=== PATIENT | female | born 1930 | race African-American/Black ===

== ENCOUNTER → 2017-07-11 | Outpatient (CLI) | payer MEDICARE, BC ==
[2017-07-11 12:47] LABS: Basophils # (A) 0.1 k/uL (0-0.2); Basophils % (A) 1 %; CH 33.5; Eosinophils # (A) 0.2 k/uL (0-0.7); Eosinophils % (A) 4 %; HCT 39.4 % (34.0-46.0); HDW 2.42; HGB 12.8 gm/dL (11.4-16.0); Luc # (Auto) 0.29; Luc % (Auto) 5; Lymphocytes # (A) 2.5 k/uL (1.0-4.8); Lymphocytes % (A) 39 %; MCH 34.2 pg (25.0-35.0); MCHC 32.6 g/dL (31.0-37.0); MCV 104.9 fL (80.0-100.0); Macrocytosis Slight; Mean Platelet Volume 7.3; Monocytes # (A) 0.4 k/uL (0-1.0); Monocytes % (A) 6 %; Neutrophils # (A) 2.9 k/uL (1.3-7.7); Neutrophils % (A) 46 %; RBC 3.75 m/uL (3.80-5.40); RDW 12.3 % (11.5-15.5); WBC 6.4 k/uL (3.8-10.6); WBC (Perox) 6.42
[2017-07-11 12:52] LABS: Appearance,Urine Clear (Clear); Bacteria,Urine Rare /hpf; Bilirubin,Urine Negative (Negative); Glucose,Urine (UA) Negative (Negative); Ketones,Urine Negative (Negative); Leukocyte Esterase,Urine Moderate (Negative); Mucus,Urine Rare /hpf; Nitrite,Urine Negative (Negative); PH, Urine 5.5 (5.0-8.0); Particle Count 4371; Protein,Urine Negative (Negative); RBC,Urine 1 /hpf (0-5); Specific Gravity,Urine 1.013 (1.001-1.035); Squamous Epithelial Cell,Urine 5 /hpf (0-4); UA Billing (MACRO vs. MICRO) MICRO; WBC,Urine 1 /hpf (0-5)
[2017-07-11 12:57] LABS: Calcium 10.1 mg/dL (8.4-10.2); Potassium 4.6 mmol/L (3.5-5.1); Total Bilirubin 0.8 mg/dL (0.2-1.3); Total Protein 7.3 g/dL (6.3-8.2); Uric Acid 6.5 mg/dL (3.7-7.4)
== END | disposition home or self-care (01) ==
LOC: LABWHC1 11:20
PROVIDERS: ATTEND Internal Medicine Critical Care Medicine
DX: N18.9 Chronic kidney disease, unspecified (principal)
CPT/HCPCS: 36415; 80053; 80061; 81001; 82306; 84550; 85025

== ENCOUNTER → 2018-04-06 | Outpatient (CLI) | payer MEDICARE, BC ==
[2018-04-06 12:45] LABS: Basophils # (A) 0.1 k/uL (0-0.2); Basophils % (A) 1 %; Eosinophils # (A) 0.2 k/uL (0-0.7); Eosinophils % (A) 2 %; HCT 42.7 % (34.0-46.0); HGB 14.2 gm/dL (11.4-16.0); Lymphocytes # (A) 2.2 k/uL (1.0-4.8); Lymphocytes % (A) 36 %; MCH 34.4 pg (25.0-35.0); MCHC 33.3 g/dL (31.0-37.0); MCV 103.3 fL (80.0-100.0); Macrocytosis Slight; Mean Platelet Volume 7.3; Monocytes # (A) 0.3 k/uL (0-1.0); Monocytes % (A) 5 %; Neutrophils # (A) 3.2 k/uL (1.3-7.7); Neutrophils % (A) 53 %; Platelet Count 169 k/uL (150-450); RBC 4.14 m/uL (3.80-5.40); RDW 12.4 % (11.5-15.5); WBC 6.1 k/uL (3.8-10.6)
[2018-04-06 12:50] LABS: Albumin 4.3 g/dL (3.5-5.0); Calcium 10.5 mg/dL (8.4-10.2); Potassium 4.5 mmol/L (3.5-5.1); Total Protein 7.7 g/dL (6.3-8.2)
[2018-04-06 13:06] LABS: T4, Free (Free Thyroxine) 1.47 ng/dL (0.78-2.19)
== END | disposition home or self-care (01) ==
LOC: LABWHC1 11:51
PROVIDERS: ATTEND Internal Medicine Critical Care Medicine
DX: E78.5 Hyperlipidemia, unspecified (principal)
CPT/HCPCS: 36415; 80053; 80061; 84439; 84443; 85025

== ENCOUNTER → 2018-04-09 | Outpatient (CLI) | payer MEDICARE, BC | END | disposition home or self-care (01) | LOC: LABWHC1 09:58 | PROVIDERS: ATTEND Internal Medicine Critical Care Medicine | DX: E83.52 Hypercalcemia (principal) | CPT/HCPCS: 36415; 83970 ==

== ENCOUNTER → 2018-04-20 | Outpatient (CLI) | payer MEDICARE, BC ==
--- NOTE | 2018-04-21 08:24 | NM ---
EXAMINATION TYPE: NM parathyroid w/spect DATE OF EXAM: 04/20/2018 COMPARISON: NONE HISTORY: R 94.6, abnormal thyroid function test TECHNIQUE: Following administration of 24.1 mCi Tc99m Sestamibi. Anterior projection images of the neck and ches t were obtained 10 minutes and 3 hours post injection. SPECT images of the neck and chest were obtai tanya and reconstructed in three axes. FINDINGS: Thyroid tracer washout: Delayed images demonstrate near-complete tracer washout from the thyroid. Parathyroid uptake: None. The two-hour delayed images do not demonstrate any focal abnormal persisten t uptake in the region of the parathyroid glands to suggest parathyroid adenoma. IMPRESSION: Normal parathyroid imaging study. No evidence for mediastinal uptake to suggest mediastinal parathyro id adenoma
== END | disposition home or self-care (01) ==
LOC: RADNMMAIN 11:35
PROVIDERS: ATTEND Internal Medicine Critical Care Medicine
DX: R94.6 Abnormal results of thyroid function studies (principal)
CPT/HCPCS: 78071; A9500

== ENCOUNTER 2018-11-09 12:21 | Inpatient (IN) | payer MEDICARE, BC ==
[2018-11-09] MEDS ORDERED: IPRATROPIUM-ALBUTEROL 3 ML NEB INHALATION STA (13:43)
--- NOTE | 2018-11-09 13:47 | ED ---
General Adult HPI - General Chief complaint: Shortness of Breath Stated complaint: Sob Time Seen by Provider: 11/09/18 12:52 Source: patient, family, RN notes reviewed Mode of arrival: wheelchair Limitations: no limitations - History of Present Illness Initial comments: Patient is a pleasant 88-year-old female presenting to the emergency department with dyspnea. Dyspnea has been ongoing for several months however is much worse today. Patient has had cough with some yellow sputum. No fevers. Patient does have some mild pressure in her chest. Symptoms worsened significantly with exertion. No history of chronic lung problems or COPD. Patient does have a history of previous pulmonary embolism however is not on any anticoagulation at this time. Patient did see her primary care physician, Dr. Somers earlier today who did advise she comes to the hospital. Patient does admit to having some mild leg swelling however states this is chronic and unchanged - Related Data Home Medications Medication Instructions Recorded Confirmed Acetaminophen Tab [Tylenol Tab] 1,000 mg PO Q4H PRN 11/09/18 11/09/18 Simvastatin [Zocor] 20 mg PO HS 11/09/18 11/09/18 amLODIPine [Norvasc] 10 mg PO DAILY 11/09/18 11/09/18 Previous Rx's Medication Instructions Recorded Aspirin EC [Ecotrin Low Dose] 81 mg PO DAILY tablet. 01/07/16 Nitroglycerin Sl Tabs [Nitrostat] 0.4 mg SUBLINGUAL Q5M PRN #25 tab 01/07/16 Allergies Allergy/AdvReac Type Severity Reaction Status Date / Time No Known Allergies Allergy Verified 11/09/18 13:11 Review of Systems ROS Statement: Those systems with pertinent positive or pertinent negative responses have been documented in the HPI. ROS Other: All systems not noted in ROS Statement are negative. Constitutional: Denies: fever Eyes: Denies: eye pain ENT: Denies: ear pain Respiratory: Reports: as per HPI, cough, dyspnea Cardiovascular: Reports: chest pain Endocrine: Reports: fatigue Gastrointestinal: Denies: abdominal pain Genitourinary: Denies: dysuria Musculoskeletal: Denies: arthralgia Skin: Denies: rash Neurological: Denies: headache Past Medical History Past Medical History: Hyperlipidemia, Hypertension, Renal Disease Additional Past Medical History / Comment(s): Remote history of questionable pulmonary embolus, and back then the patient was treated with 6 months of an evaluation with warfarin. Note that the patient has chronic renal failure, she is of a Religious kash History of Any Multi-Drug Resistant Organisms: None Reported Past Surgical History: Breast Surgery Additional Past Surgical History / Comment(s): L breast biopsy Past Anesthesia/Blood Transfusion Reactions: No Reported Reaction Past Psychological History: No Psychological Hx Reported Smoking Status: Never smoker Past Alcohol Use History: None Reported Past Drug Use History: None Reported - Past Family History Father History Unknown: Yes Family Medical History: Hyperlipidemia, Hypertension Mother Family Medical History: Hypertension General Exam Limitations: no limitations General appearance: alert, in no apparent distress Head exam: Present: atraumatic Eye exam: Present: normal appearance, PERRL ENT exam: Present: normal oropharynx Respiratory exam: Present: decreased breath sounds Cardiovascular Exam: Present: regular rate, normal rhythm Expanded Peripheral pulses: 2+: Radial (R), Radial (L), Dorsalis Pedis (R), Dorsalis Pedis (L) GI/Abdominal exam: Present: soft. Absent: tenderness Extremities exam: Present: pedal edema (+ 1 bilateral). Absent: calf tenderness Back exam: Present: normal inspection Neurological exam: Present: alert Psychiatric exam: Present: normal affect, normal mood Skin exam: Present: normal color Course Vital Signs 11/09/18 11/09/18 11/09/18 12:34 13:54 13:59 Temperature 98.4 F Pulse Rate 102 H 93 91 Respiratory 18 Rate Blood Pressure 127/76 O2 Sat by Pulse 91 L Oximetry EKG Findings - EKG Comments: EKG Findings:: Normal sinus rhythm 95. VT 180. QRS 80. QT 378. QTC 475. Left axis. Normal QRS. No acute ST change. Medical Decision Making - Medical Decision Making Patient reevaluated and resting comfortably in bed. Patient and family updated on results and plan. Dr. Somers had requested VQ scan and echo and Doppler. These will be ordered. He will be placed on consult. Case also discussed with Dr. Hollingsworth, who has previously admitted this patient and will admit. Patient will be covered on heparin at this time secondary to incomplete evaluation for pulmonary embolism. VQ scan is not available at this time. Cardiology will also be placed on consult. - Lab Data Result diagrams: 11/09/18 13:15 11/09/18 13:15 Lab Results 11/09/18 11/09/18 11/09/18 Range/Units 13:15 13:15 13:15 WBC 7.3 (3.8-10.6) k/uL RBC 3.72 L (3.80-5.40) m/uL Hgb 12.5 (11.4-16.0) gm/dL Hct 37.4 (34.0-46.0) % MCV 100.4 H (80.0-100.0) fL MCH 33.6 (25.0-35.0) pg MCHC 33.5 (31.0-37.0) g/dL RDW 12.3 (11.5-15.5) % Plt Count 125 L (150-450) k/uL Neutrophils % 68 % Lymphocytes % 23 % Monocytes % 5 % Eosinophils % 2 % Basophils % 0 % Neutrophils # 5.0 (1.3-7.7) k/uL Lymphocytes # 1.6 (1.0-4.8) k/uL Monocytes # 0.4 (0-1.0) k/uL Eosinophils # 0.1 (0-0.7) k/uL Basophils # 0.0 (0-0.2) k/uL PT (9.0-12.0) sec INR (<1.2) APTT (22.0-30.0) sec Sodium 141 (137-145) mmol/L Potassium 4.4 (3.5-5.1) mmol/L Chloride 113 H (98-107) mmol/L Carbon Dioxide 18 L (22-30) mmol/L Anion Gap 10 mmol/L BUN 19 H (7-17) mg/dL Creatinine 1.26 H (0.52-1.04) mg/dL Est GFR (CKD-EPI)AfAm 45 (>60 ml/min/1.73 sqM) Est GFR (CKD-EPI)NonAf 39 (>60 ml/min/1.73 sqM) Glucose 118 H (74-99) mg/dL Calcium 10.0 (8.4-10.2) mg/dL Total Bilirubin 0.9 (0.2-1.3) mg/dL AST 19 (14-36) U/L ALT 19 (9-52) U/L Alkaline Phosphatase 91 (38-126) U/L Total Creatine Kinase 85 (30-135) U/L CK-MB (CK-2) 0.7 (0.0-2.4) ng/mL CK-MB (CK-2) Rel Index 0.8 Troponin I 0.070 H* (0.000-0.034) ng/mL NT-Pro-B Natriuret Pep pg/mL Total Protein 7.7 (6.3-8.2) g/dL Albumin 3.9 (3.5-5.0) g/dL 11/09/18 11/09/18 Range/Units 13:15 13:15 WBC (3.8-10.6) k/uL RBC (3.80-5.40) m/uL Hgb (11.4-16.0) gm/dL Hct (34.0-46.0) % MCV (80.0-100.0) fL MCH (25.0-35.0) pg MCHC (31.0-37.0) g/dL RDW (11.5-15.5) % Plt Count (150-450) k/uL Neutrophils % % Lymphocytes % % Monocytes % % Eosinophils % % Basophils % % Neutrophils # (1.3-7.7) k/uL Lymphocytes # (1.0-4.8) k/uL Monocytes # (0-1.0) k/uL Eosinophils # (0-0.7) k/uL Basophils # (0-0.2) k/uL PT 10.2 (9.0-12.0) sec INR 0.9 (<1.2) APTT 24.1 (22.0-30.0) sec Sodium (137-145) mmol/L Potassium (3.5-5.1) mmol/L Chloride (98-107) mmol/L Carbon Dioxide (22-30) mmol/L Anion Gap mmol/L BUN (7-17) mg/dL Creatinine (0.52-1.04) mg/dL Est GFR (CKD-EPI)AfAm (>60 ml/min/1.73 sqM) Est GFR (CKD-EPI)NonAf (>60 ml/min/1.73 sqM) Glucose (74-99) mg/dL Calcium (8.4-10.2) mg/dL Total Bilirubin (0.2-1.3) mg/dL AST (14-36) U/L ALT (9-52) U/L Alkaline Phosphatase (38-126) U/L Total Creatine Kinase (30-135) U/L CK-MB (CK-2) (0.0-2.4) ng/mL CK-MB (CK-2) Rel Index Troponin I (0.000-0.034) ng/mL NT-Pro-B Natriuret Pep 810 pg/mL Total Protein (6.3-8.2) g/dL Albumin (3.5-5.0) g/dL - Radiology Data Radiology results: image reviewed (Chest x-ray shows no acute pulmonary disease. Right. Tracheal soft tissue density.) Disposition Clinical Impression: Dyspnea Disposition: ADMITTED IP TO THIS HOSP Is patient prescribed a controlled substance at d/c from ED?: No Referrals: Nakia Somers MD [Primary Care Provider] - 1-2 days Decision Time: 15:19
[2018-11-09 14:24] LABS: Basophils % (A) 0 %; Eosinophils # (A) 0.1 k/uL (0-0.7); Eosinophils % (A) 2 %; HCT 37.4 % (34.0-46.0); HGB 12.5 gm/dL (11.4-16.0); Lymphocytes # (A) 1.6 k/uL (1.0-4.8); Lymphocytes % (A) 23 %; MCH 33.6 pg (25.0-35.0); MCHC 33.5 g/dL (31.0-37.0); MCV 100.4 fL (80.0-100.0); Mean Platelet Volume 7.2; Monocytes # (A) 0.4 k/uL (0-1.0); Monocytes % (A) 5 %; Neutrophils % (A) 68 %; Platelet Count 125 k/uL (150-450); RBC 3.72 m/uL (3.80-5.40); RDW 12.3 % (11.5-15.5); WBC 7.3 k/uL (3.8-10.6)
[2018-11-09 14:28] LABS: Albumin 3.9 g/dL (3.5-5.0); Potassium 4.4 mmol/L (3.5-5.1); Total Bilirubin 0.9 mg/dL (0.2-1.3); Total Protein 7.7 g/dL (6.3-8.2)
[2018-11-09 14:43] LABS: INR 0.9 (<1.2); Partial Thromboplastin Time 24.1 sec (22.0-30.0); Prothrombin Time 10.2 sec (9.0-12.0)
[2018-11-09 15:00] LABS: Creatine Kinase MB 0.7 ng/mL (0.0-2.4)
--- NOTE | 2018-11-09 15:04 | XR ---
EXAMINATION TYPE: XR chest 2V DATE OF EXAM: 11/09/2018 COMPARISON: 01/06/2016 HISTORY: Shortness of breath TECHNIQUE: Frontal and lateral views of the chest are obtained. FINDINGS: Scattered senescent parenchymal changes noted. Hyperinflation compatible with COPD. No evidence for infiltrate. No evidence for atelectasis. Heart size is stable. Right paratracheal soft tissue mass is unchanged. No evidence for hilar prominence. Degenerative changes dorsal spine. IMPRESSION: 1. No evidence for acute pulmonary disease. Right paratracheal soft tissue density. Consider CT corre lation.
[2018-11-09 15:10] LABS: Troponin I 0.07 ng/mL (0.000-0.034)
[2018-11-09] MEDS ORDERED: NITROGLYCERIN SL TABS 0.4 MG TAB SUBLINGUAL PRN (15:20)
[2018-11-09] MEDS ORDERED: HEPARIN SODIUM,PORCINE 5,000 UNIT/ML 1 ML VIAL IV PRN (15:20)
[2018-11-09] MEDS ORDERED: HEPARIN SODIUM,PORCINE 10,000 UNIT/ML 1 ML VIAL IV ONE (15:20)
[2018-11-09] MEDS ORDERED: ASPIRIN 81 MG PO STA (15:20)
[2018-11-09] MEDS ORDERED: IPRATROPIUM-ALBUTEROL 3 ML NEB INHALATION PRN (15:20)
--- NOTE | 2018-11-09 16:37 | US ---
EXAMINATION TYPE: US venous doppler duplex LE BI DATE OF EXAM: 11/09/2018 4:23 PM COMPARISON: NONE CLINICAL HISTORY: 85-year-old female Pain. Ankle swelling SIDE PERFORMED: Bilateral TECHNIQUE: The lower extremity deep venous system is examined utilizing real time linear array sonog la with graded compression, doppler sonography and color-flow sonography. FINDINGS: VESSELS IMAGED: External Iliac Vein (EIV) Common Femoral Vein Deep Femoral Vein Greater Saphenous Vein * Femoral Vein Popliteal Vein Small Saphenous Vein * Proximal Calf Veins (* superficial vessels) Right Leg: Internal echoes within popiteal vein and proximal calf veins that are not compressible Left Leg: Appears negative for DVT IMPRESSION: 1. Exam positive for occlusive DVT within the right lower extremity at the level of the popliteal and upper calf vein. 2. No evidence for DVT within the left lower extremity imaged from the groin to the upper calf.
[2018-11-09] MEDS: IPRATROPIUM-ALBUTEROL 3 ML NEB INHALATION SCH ×2 (17:14→20:47)
[2018-11-09] MEDS: HEPARIN SOD,PORK IN 0.45% NACL 25,000 UNIT in 0.45% NACL 1 250ML.BAG IV SCH (17:21)
--- NOTE | 2018-11-09 18:09 | ECHOF ---
Referral Reason:Dyspnea, chest pressure MEASUREMENTS -------- HEIGHT: 167.6 cm WEIGHT: 88.0 kg BP: 146/80 IVSd: 1.2 cm (0.6 - 1.1) LVIDd: 2.6 cm (3.9 - 5.3) LVPWd: 1.2 cm (0.6 - 1.1) IVSs: 1.5 cm LVIDs: 1.5 cm LVPWs: 1.5 cm RVIDd: 2.7 cm (< 3.3) LAESV Index (A-L): 22.09 ml/m Ao Diam: 3.5 cm (2.0 - 3.7) LA Diam: 4.1 cm (2.7 - 3.8) AV Cusp: 1.9 cm (1.5 - 2.6) EPSS: 0.6 cm MV E Isael: 0.64 m/s MV DecT: 436 ms MV A Isael: 1.33 m/s MV E/A Ratio: 0.48 AV maxP.43 mmHg AV meanP.46 mmHg RAP: 5.00 mmHg RVSP: 86.47 mmHg MV EF SLOPE: 52.08 mm/s (70 - 150) MV EXCURSION: 0.95 cm (> 18.000) FINDINGS -------- Sinus rhythm. This was a technically adequate study. The left ventricular size is normal. There is mild concentric left ventricular hypertrophy. Left ventricular systolic function is hyperdynamic with an estimated EF of >70%. The right ventricle is normal in size and function. Normal LA size by volume 22+/-6 ml/m2. The right atrium was not well visualized. Aortic valve is trileaflet and is mildly thickened. There is no evidence of aortic regurgitation. There is no evidence of aortic stenosis. The mitral valve leaflets are mildly thickened. Moderate mitral annular calcification present. Mi ld mitral regurgitation is present. There is mildly calcified chordae. Moderate tricuspid regurgitation present. There is severe pulmonary hypertension. The right ventr icular systolic pressure, as measured by Doppler, is 86.47mmHg. Trace/mild (physiologic) pulmonic regurgitation. The aortic root size is normal. Normal inferior vena cava with normal inspiratory collapse consistent with estimated right atrial pre ssure of 5 mmHg. There is a trivial pericardial effusion present. CONCLUSIONS -------- 1. Sinus rhythm. 2. This was a technically adequate study. 3. The left ventricular size is normal. 4. There is mild concentric left ventricular hypertrophy. 5. Left ventricular systolic function is hyperdynamic with an estimated EF of >70%. 6. Normal LA size by volume 22+/-6 ml/m2. 7. The right atrium was not well visualized. 8. Aortic valve is trileaflet and is mildly thickened. 9. The mitral valve leaflets are mildly thickened. 10. Moderate mitral annular calcification present. 11. Mild mitral regurgitation is present. 12. There is mildly calcified chordae. 13. Moderate tricuspid regurgitation present. 14. There is severe pulmonary hypertension. 15. The right ventricular systolic pressure, as measured by Doppler, is 86.47mmHg. 16. Trace/mild (physiologic) pulmonic regurgitation. 17. The aortic root size is normal. 18. There is a trivial pericardial effusion present. [employer]: Ankush Estrada RDCS
[2018-11-09 18:23] VITALS: BMI 31.3
[2018-11-09] MEDS: NITROGLYCERIN OINT 1 INCH/GM PACKET TOPICAL SCH ×2 (19:48→23:09)
[2018-11-09 20:23] LABS: Creatine Kinase MB 0.9 ng/mL (0.0-2.4)
[2018-11-09 20:34] LABS: Troponin I 0.119 ng/mL (0.000-0.034)
[2018-11-10] MEDS ORDERED: NITROGLYCERIN SL TABS 0.4 MG TAB SUBLINGUAL PRN (00:36)
[2018-11-10 01:32] LABS: Troponin I 0.092 ng/mL (0.000-0.034)
--- NOTE | 2018-11-10 02:26 | HP ---
HISTORY AND PHYSICAL DATE OF ADMISSION: November 09, 2018 DATE OF SERVICE: November 09, 2018. PRESENTING COMPLAINT: Short of breath, tired. HISTORY OF PRESENTING COMPLAINT: Pleasant 88 -year-old female patient of Dr. Somers I saw yesterday evening. Chronic stable medical conditions include hypertension, hyperlipidemia, chronic kidney disease, osteoarthritis, hypertensive heart disease, ITP, L[employer]-day. The patient is also a L[employer]-day. The patient has been tired for quite a while. Went to see Dr. Somers. She was feeling more and more tired yesterday. Denies any obvious chest pain. Did have some ankle edema but it is dependent. Using two pillows at night. Occasional cough, some mucus drainage in the morning. Because of the tiredness, she was sent to the ER. The patient's troponin was 0.070 and 0.119. IV heparin was started. Venous Doppler lower extremity was negative. The patient is not sure about chest pressure. REVIEW OF SYSTEMS: CONSTITUTIONAL: Tired. HEENT none. RESPIRATORY: Some shortness of breath. CARDIOVASCULAR as above. GASTROINTESTINAL: None. GENITOURINARY: None. MUSCULOSKELETAL: Some pain in the joints. DERMATOLOGICAL, HEMATOLOGIC, LYMPHATIC: none. PSYCHIATRY none. NEUROLOGICAL none. PAST MEDICAL HISTORY: Of hyperlipidemia, hypertension, chronic kidney disease, osteoarthritis, pulmonary embolism, hypertensive heart disease, ITP. Patient also a Mosque. PAST SURGICAL HISTORY: Left breast lumpectomy, cataract removed. SOCIAL HISTORY: The patient lives in an apartment with the handicaps and uses a wheelchair and a cane. The patient smoked for close to 20 years, stopped about for 45 years ago. Smoked about one third pack a day. No alcohol. FAMILY HISTORY: Hyperlipidemia and hypertension. HOME MEDICATIONS: 1. Norvasc 10 mg a day. 2. Zocor 20 mg q.h.s. 3. Nitrostat 0.4 sublingual q.5 p.r.n. 4. Aspirin 81 mg p.o. daily. 5. Tylenol 1000 mg q.4 p.r.n. ALLERGIES: None. PHYSICAL EXAMINATION: VITAL SIGNS: On examination, vital signs on presentation, temperature 98.4, pulse 102, respiration 18, blood pressure 127/76, pulse ox 91% on room air. GENERAL APPEARANCE: Well built, BMI 31.3. Lying in bed, tired. EYES: Pupils equal. Conjunctivae normal. HEENT: External appearance of nose and ears normal. Oral cavity normal. NECK: JVD unable to assess. Mass not palpable. RESPIRATORY: Effort increased. Decreased breath sounds. CARDIOVASCULAR: 1st and 2nd sounds some edema present. ABDOMEN: Soft, nontender. Liver and spleen not palpable. LYMPHATICS: No lymph nodes palpable in the neck and axilla. PSYCHIATRY: Alert and oriented x3. Mood and affect normal. NEUROLOGICAL: Pupils equal. Cranial nerves grossly intact. Power and sensation grossly intact. INVESTIGATIONS: White count 7.3, hemoglobin 12.5, potassium 4.4, BUN 19, creatinine 1.26. Troponin 0.070, 0.119. ProBNP is 810. EKG tracing personally reviewed by me shows nonspecific ST-segment changes, otherwise sinus rhythm. Chest x-ray film personally reviewed by me shows some straightening of the left heart border, borderline cardiomegaly, venous Doppler negative for DVT in the lower extremities. 2D echocardiogram shows EF of more than 70%. Moderate mitral annular calcification. Moderate tricuspid regurgitation, severe pulmonary hypertension. ASSESSMENT: 1. This is a patient who presents with easily getting tired and pulmonary hypertension, secondary pulmonary hypertension. This could be from chronic pulmonary embolism, which can only be determined by V/Q scan because of renal function. That might explain patient's severe pulmonary hypertension. Also explains why patient easily gets tired. Underlying cardiac cause also needs to be ruled out. 2. Positive troponin in the setting of renal failure, need to determine if there is underlying cardiac cause, the risk factors are several. 3. Hyperlipidemia. 4. Essential hypertension. 5. Chronic kidney stage 3 from nephrosclerosis. 6. Primary osteoarthritis. 7. 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 8. Hypertensive heart disease. 9. Severe tricuspid regurgitation, nonrheumatic. 10.The patient is a Latter-day. 11.IV heparin monitoring. PLAN: V/Q scan has been ordered to determine any chronic pulmonary embolism. That will explain patient's pulmonary hypertension and her symptoms. Both Cardiology and Pulmonary has been consulted. Care was discussed with the patient. Questions were answered. Home medications are resumed. Patient is on IV heparin. Care was discussed with the patient. Questions were answered. Copy to Dr. Somers. MMODL / IJN: [id number] /
[2018-11-10] MEDS: NITROGLYCERIN OINT 1 INCH/GM PACKET TOPICAL SCH ×3 (05:46→18:07)
[2018-11-10 06:25] LABS: Basophils # (A) 0.1 k/uL (0-0.2); Basophils % (A) 1 %; Eosinophils # (A) 0.3 k/uL (0-0.7); Eosinophils % (A) 4 %; HCT 36.2 % (34.0-46.0); HGB 11.9 gm/dL (11.4-16.0); Lymphocytes # (A) 2.7 k/uL (1.0-4.8); Lymphocytes % (A) 37 %; MCH 33.5 pg (25.0-35.0); MCHC 32.8 g/dL (31.0-37.0); MCV 102.1 fL (80.0-100.0); Mean Platelet Volume 7.4; Monocytes # (A) 0.4 k/uL (0-1.0); Monocytes % (A) 5 %; Neutrophils # (A) 3.7 k/uL (1.3-7.7); Neutrophils % (A) 51 %; Platelet Count 124 k/uL (150-450); RBC 3.54 m/uL (3.80-5.40); RDW 12.3 % (11.5-15.5); WBC 7.3 k/uL (3.8-10.6)
[2018-11-10 06:45] LABS: Prothrombin Time 10.9 sec (9.0-12.0)
[2018-11-10 07:05] LABS: Cholesterol 172 mg/dL (<200); HDL Cholesterol 52 mg/dL (40-60); LDL Cholesterol,Calculated 104 mg/dL (0-99); Triglycerides 79 mg/dL (<150)
[2018-11-10 07:27] LABS: Partial Thromboplastin Time 112.2 sec (22.0-30.0)
[2018-11-10] MEDS: IPRATROPIUM-ALBUTEROL 3 ML NEB INHALATION SCH ×4 (08:28→19:58)
[2018-11-10] MEDS: HEPARIN SOD,PORK IN 0.45% NACL 25,000 UNIT in 0.45% NACL 1 250ML.BAG IV SCH (08:41)
[2018-11-10] MEDS ORDERED: ASPIRIN 325 MG TAB PO SCH (09:00)
--- NOTE | 2018-11-10 09:08 | P.CRDCN ---
History of Present Illness Consult date: 11/10/18 Requesting physician: Deni Hollingsworth Reason for Consult (text): Abnormal troponin Chief complaint: Shortness of breath and chest pressure History of present illness: This is a pleasant 88-year-old -[place] female with known history of hypertension, hyperlipidemia, chronic kidney disease, prior pulmonary embolism, who states that she was on Coumadin approximately 7 years ago for a PE. According to the patient it was not determined at that time why she developed a pulmonary embolism. She apparently was at Dr. Somers's office yesterday for an appointment, was complaining of some shortness of breath with midsternal chest pressure, was advised to come to the emergency room at that time for further evaluation. Chest x-ray did not reveal any evidence for acute pulmonary disease. Right paratracheal soft tissue density, consider CT. An echocardiogram with Doppler study was performed which revealed an EF of greater then 70%, moderate tricuspid regurg, moderate mitral annular calcification, severe pulmonary hypertension, RVSP 86. Venous duplex study of the lower extremities was performed which was positive for occlusive DVT within the right lower extremity at the level of the popliteal and upper calf vein no evidence of DVT within the left lower extremity. The patient is currently on high- intensity heparin drip .VQ scan has been requested this morning. Blood pressure on arrival here 127/76, heart rate in the 120 range, 91% on room air. EKG shows a normal sinus rhythm with S1 Q3 T3 pattern. At the time of my examination this morning, patient overall feels well. Denies any chest pain at present. She denies any recent long travel, no recent surgeries. Past Medical History Past Medical History: Hyperlipidemia, Hypertension, Osteoarthritis (OA), Pulmonary Embolus (PE), Renal Disease Additional Past Medical History / Comment(s): Remote history of questionable pulmonary embolus, and back then the patient was treated with 6 months of an evaluation with warfarin. Note that the patient has chronic renal failure, she is of a Christianity kash, "flat footed", uses cane when up. pt stated has had both flu/pne vaccine but not sure of dates. please f/u in am with dr office for dates. History of Any Multi-Drug Resistant Organisms: None Reported Past Surgical History: Breast Surgery Additional Past Surgical History / Comment(s): "L breast lumpecetomy-benign", cataracts removed-lens implants Past Anesthesia/Blood Transfusion Reactions: No Reported Reaction Smoking Status: Former smoker - Past Family History Father History Unknown: Yes Family Medical History: Hyperlipidemia, Hypertension Mother Family Medical History: Hypertension Medications and Allergies Home Medications Medication Instructions Recorded Confirmed Type Aspirin EC [Ecotrin Low Dose] 81 mg PO DAILY tablet. 01/07/16 11/09/18 Rx Nitroglycerin Sl Tabs [Nitrostat] 0.4 mg SUBLINGUAL Q5M PRN #25 tab 01/07/16 Rx Acetaminophen Tab [Tylenol Tab] 1,000 mg PO Q4H PRN 11/09/18 11/09/18 History Simvastatin [Zocor] 20 mg PO HS 11/09/18 11/09/18 History amLODIPine [Norvasc] 10 mg PO DAILY 11/09/18 11/09/18 History Allergies Allergy/AdvReac Type Severity Reaction Status Date / Time No Known Allergies Allergy Verified 11/09/18 13:11 Physical Exam Vitals: Vital Signs Temp Pulse Pulse Resp BP BP Pulse Ox 11/10/18 08:35 72 11/10/18 08:29 70 94 L 11/10/18 08:00 97.8 F 68 16 125/62 96 11/10/18 05:49 73 16 138/85 96 11/09/18 23:11 78 16 124/59 98 11/09/18 21:45 98.4 F 87 16 136/74 94 L 11/09/18 20:59 80 11/09/18 20:47 78 94 L 11/09/18 17:55 98.2 F 104 H 16 157/79 91 L 11/09/18 17:00 94 19 142/85 89 L 11/09/18 16:30 93 13 130/79 91 L 11/09/18 16:00 94 23 149/87 87 L 11/09/18 15:30 97 16 146/80 87 L 11/09/18 15:00 100 19 146/86 85 L 11/09/18 14:30 104 H 22 160/100 89 L 11/09/18 14:00 93 27 H 145/97 95 11/09/18 13:59 91 11/09/18 13:54 93 11/09/18 13:30 95 22 132/81 90 L 11/09/18 13:00 97 17 90 L 11/09/18 12:48 161 H 31 H 11/09/18 12:34 98.4 F 102 H 18 127/76 91 L Intake and Output 11/09/18 11/10/18 11/10/18 22:59 06:59 14:59 Intake Total 360 95.244 95.364 Balance 360 95.244 95.364 Intake: Intake, IV Titration 95.244 95.364 Amount Heparin Sod,Pork in 0.45% 95.244 95.364 NaCl 25,000 unit In 0.45 % NaCl 1 250ml.bag @ 18 UNITS/KG/HR 15.83 mls/hr IV .[id number] GINNY Rx#: [id number] Oral 360 Other: Voiding Method Toilet # Voids 1 1 Weight 86.7 kg PHYSICAL EXAMINATION: GENERAL: 88-year-old -[place] female in no acute distress at the time of my examination HEENT: Head is atraumatic, normocephalic. Pupils equal, round. Sclera anicteric. Conjunctiva are clear. Mucous membranes of the mouth are moist. Neck is supple. There is no elevated jugular venous pressure. No carotid bruit is heard. HEART EXAMINATION: Heart S1 S2 1 systolic murmur is heard. CHEST EXAMINATION: Lungs are clear to auscultation and precussion. No chest wall tenderness is noted on palpation or with deep breathing. ABDOMEN: Soft, nontender. Bowel sounds are heard. No organomegaly noted. EXTREMITIES: 2+ peripheral pulses with trace evidence of peripheral edema, no calf tenderness noted on either lower extremity, negative Homans. NEUROLOGIC patient is awake, alert and oriented 3 . . Results 11/10/18 05:37 11/09/18 13:15 Cardiac Enzymes 11/09/18 11/09/18 11/09/18 Range/Units 13:15 13:15 19:37 AST 19 (14-36) U/L CK-MB (CK-2) 0.7 0.9 (0.0-2.4) ng/mL Troponin I 0.070 H* 0.119 H* (0.000-0.034) ng/mL 11/10/18 Range/Units 00:25 AST (14-36) U/L CK-MB (CK-2) 1.0 (0.0-2.4) ng/mL Troponin I 0.092 H* (0.000-0.034) ng/mL Coagulation 11/09/18 11/09/18 11/10/18 Range/Units 13:15 22:21 05:37 PT 10.2 10.9 (9.0-12.0) sec APTT 24.1 >200.0 H* 112.2 H* (22.0-30.0) sec Lipids 11/10/18 Range/Units 05:37 Triglycerides 79 (<150) mg/dL Cholesterol 172 (<200) mg/dL HDL Cholesterol 52 (40-60) mg/dL CBC 11/09/18 11/10/18 Range/Units 13:15 05:37 WBC 7.3 7.3 (3.8-10.6) k/uL RBC 3.72 L 3.54 L (3.80-5.40) m/uL Hgb 12.5 11.9 (11.4-16.0) gm/dL Hct 37.4 36.2 (34.0-46.0) % Plt Count 125 L 124 L (150-450) k/uL Comprehensive Metabolic Panel 11/09/18 Range/Units 13:15 Sodium 141 (137-145) mmol/L Potassium 4.4 (3.5-5.1) mmol/L Chloride 113 H (98-107) mmol/L Carbon Dioxide 18 L (22-30) mmol/L BUN 19 H (7-17) mg/dL Creatinine 1.26 H (0.52-1.04) mg/dL Glucose 118 H (74-99) mg/dL Calcium 10.0 (8.4-10.2) mg/dL AST 19 (14-36) U/L ALT 19 (9-52) U/L Alkaline Phosphatase 91 (38-126) U/L Total Protein 7.7 (6.3-8.2) g/dL Albumin 3.9 (3.5-5.0) g/dL Current Medications Generic Name Dose Route Start Last Admin Trade Name Freq PRN Reason Stop Dose Admin Albuterol/Ipratropium 3 ml 11/09/18 16:00 11/10/18 08:28 Duoneb 0.5 Mg-3 Mg/3 Ml Soln INHALATION 3 ml RT-QID GINNY Administration Albuterol/Ipratropium 3 ml 11/09/18 15:20 Duoneb 0.5 Mg-3 Mg/3 Ml Soln INHALATION RT-Q4H PRN Shortness Of Breath Or Wheezing Amlodipine Besylate 10 mg 11/10/18 09:[address] [facility] Aspirin 81 mg 11/10/18 09:[address] [facility] Atorvastatin Calcium 10 mg 11/10/18 21:[address] [facility] Heparin Sodium (Porcine) 0 unit 11/09/18 15:20 Heparin IV PER PROTOCOL PRN Low PTT Protocol Heparin Sodium/Sodium Chloride 250 mls @ 15.83 mls/hr 11/09/18 15:30 08:41 25,000 unit/ Sodium Chloride IV 12 units/kg/hr .[id number] GINNY 10.55 mls/hr Administration Protocol 18 UNITS/KG/HR Nitroglycerin 1 inch 11/09/18 18:00 11/10/18 05:46 Nitro-Bid Oint TOPICAL Not Given Q6HR [facility] Nitroglycerin 0.4 mg 11/10/18 00:36 Nitrostat SUBLINGUAL Q5M PRN Chest Pain Sodium Chloride 10 ml 11/09/18 21:00 11/09/18 23:09 Saline Flush IV Not Given BID [facility] Intake and Output 11/09/18 11/10/18 11/10/18 22:59 06:59 14:59 Intake Total 360 95.244 95.364 Balance 360 95.244 95.364 Intake: Intake, IV Titration 95.244 95.364 Amount Heparin Sod,Pork in 0.45% 95.244 95.364 NaCl 25,000 unit In 0.45 % NaCl 1 250ml.bag @ 18 UNITS/KG/HR 15.83 mls/hr IV .[id number] [facility] Rx#: [id number] Oral 360 Other: Voiding Method Toilet # Voids 1 1 Weight 86.7 kg 11/10/18 05:37 11/09/18 13:15 EKG Interpretations (text) EKG shows a normal sinus rhythm with S1 Q3 T3 pattern Assessment and Plan Plan: Assessment and plan #1 symptoms of chest pressure with associated shortness of breath. Rule out possible pulmonary embolism. Venous duplex study was positive for DVT in the right lower extremity. #2 abnormal troponins, 0.07, 0.119, 0.092, could be secondary to pulmonary embolism, echo cardiac gram with Doppler study revealed severe pulmonary hypertension with a normal LV function, RVSP 86.4 #3 chronic renal insufficiency, creatinine 1.2 #4 history of pulmonary embolism in the past #5 hypertension #6 hyperlipidemia Plan Patient scheduled to undergo a VQ scan, clinical picture suggestive of a pulmonary embolism. Patient quite hypoxic on admission here, tachycardic, troponins are abnormal, EKG reflects S1 Q3 T3 pattern, and Echo reveals severe pulmonary hypertension. We will obtain a BNP level. Continue high-dose heparin per protocol. Further recommendations to follow. DNP note has been reviewed, I agree with a documented findings and plan of care. Patient was seen and examined.
--- NOTE | 2018-11-10 10:39 | NM ---
EXAMINATION TYPE: NM pul vent and perfuse DATE OF EXAM: 11/10/2018 COMPARISON: X-ray 11/09/2018 HISTORY: Shortness of breath TECHNIQUE: Utilizing inhalation of 37.1 mCi Tc 99m DTPA aerosol and intravenous injection of 5 mCi o f Tc 99m MAA, ventilation and perfusion images are acquired post injection in multiple projections. FINDINGS: There are 2 large mismatched defects involving the right lung with no corresponding chest x-ray abnor mality. There is a matched defect within the left upper lobe. IMPRESSION: High probability for pulmonary embolism.
[2018-11-10] MEDS: ASPIRIN 81 MG PO SCH (11:24)
[2018-11-10] MEDS: amLODIPine 10 MG TAB PO SCH (11:24)
--- NOTE | 2018-11-10 14:01 | CT ---
EXAMINATION TYPE: CT chest wo con DATE OF EXAM: 11/10/2018 COMPARISON: 01/07/2013 HISTORY: dyspnea, chest pressure CT DLP: 288.[address] of the chest was performed with lung and mediastinal window settings submitted. The la ck of contrast limits evaluation of the vascular, mediastinal and parenchymal structures including th e upper abdomen. LUNGS: Scattered areas of parenchymal scarring. Nodular density right middle lobe lateral segment erendira suring 8.7 mm. Follow-up CT in 3 months is advised. Malignancy is not excluded. Pleural thickening th e region of the lingula. Scattered emphysematous changes. Hyperinflation compatible with COPD. MEDIASTINUM/ADRIANA: Thoracic aorta is atheromatous without evidence for aneurysm. The heart is not enl arged. No evidence for mediastinal mass. No lymph nodes greater than 1cm. Mild pericardial thicken ing. UPPER ABDOMEN: No significant abnormality is seen. OTHER: No significant other abnormality. IMPRESSION: 1. Nodular density right middle lobe lateral segment measuring 8.7 mm. Follow-up CT in 3 months is advised. 2. COPD.
--- NOTE | 2018-11-10 17:00 | CONS ---
CONSULTATION PULMONARY/CRITICAL CARE CONSULTATION: DATE OF CONSULTATION: 11/10/2018 REASON FOR CONSULTATION: Pulmonary embolism/shortness of breath. This is a very pleasant 88-year-old female who sees my partner as her primary doctor. She apparently has a history of hypertension and hyperlipidemia. Her primary medications are Tylenol, Zocor, amlodipine, aspirin and sublingual nitroglycerin p.r.n. She has NO ALLERGIES. She apparently was in the office and saw Dr. Somers. She came into the office with complaints of shortness of breath. Apparently it had been going on for several months but got much worse the day of admission. She also had a cough with some yellow sputum. No fever. The patient did have some mild chest pressure, but that has dissipated. Her symptoms were worse with exertion. She has no history of any chronic lung disease or COPD. The patient does have a previous history of pulmonary embolism and was on Coumadin for a period of time afterwards. Anyway, the patient was sent to the hospital. She was evaluated in the emergency room. In the emergency room she had a number of tests done, including a chest x-ray which showed a possible right- sided paratracheal mass or lesion. A CT scan was suggested. She had a venous Doppler of the lower extremities which revealed a right popliteal and calf DVT. Finally, she had a ventilation/perfusion lung scan which suggested a high probability for PE. Because of the lesion in the right paratracheal area, we did a CT scan of the chest without contrast, given her renal dysfunction. The only thing that was seen was a nodular density in the right middle lobe lateral segment measuring 8.7 mm, and a follow- up CT scan was recommended. It also suggested underlying COPD, although the patient does not have a history of COPD. Anyway, she was started on IV heparin for her DVT and pulmonary embolism. She was on Coumadin in the past. She would be a great candidate for factor a Xa inhibitor such as Eliquis or Xarelto. 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 CURRENT MEDICATIONS: As mentioned, these include: 1. Tylenol. 2. Zocor. 3. Amlodipine. 4. Aspirin. 5. Nitroglycerin. ALLERGIES: NO KNOWN DRUG ALLERGIES. PAST MEDICAL HISTORY: Positive for: 1. Hypertension. 2. Hyperlipidemia. 3. Chronic renal disease. 4. History of previous pulmonary embolism, status post 6 months of warfarin. The patient is a Judaism. SURGICAL HISTORY: Includes breast surgery and left breast biopsy. SOCIAL HISTORY: She is a lifelong nonsmoker. She denies any alcohol or illicit drug use. FAMILY HISTORY: Positive for hyperlipidemia and hypertension. REVIEW OF SYSTEMS: CONSTITUTIONAL: Negative. NEUROLOGIC: Negative. HEENT: Negative. CARDIOVASCULAR: Chest pain. PULMONARY: Shortness of breath, cough, minimal phlegm production. GI/: Negative. RHEUMATOLOGIC/IMMUNOLOGIC: Negative. ENDOCRINOLOGIC: Negative. DERMATOLOGIC: Negative. PHYSICAL EXAMINATION: Current vital signs are reviewed. Temperature is 97.8, heart rate 76, respiratory rate 16, blood pressure 129/87, mean 101. Three-liter saturation 95%. Appears in no acute distress. HEENT examination is grossly unremarkable. Mucous membranes are moist. No oral lesions. Nasal oxygen noted. It is at 3 L. HEENT examination is otherwise unremarkable. NECK: Supple. Full range of motion. No adenopathy or thyromegaly. Neck veins are flat. Cardiovascular examination reveals regular rhythm and rate. Heart rate about 70. S1, S2 normal. No murmur. No S3, S4. LUNGS: Mostly clear breath sounds. No wheezes, rhonchi or crackles. Breath sounds equal bilaterally. ABDOMEN: Soft. Bowel sounds are heard. There are no masses or tenderness. Extremities are intact. No cyanosis, clubbing or edema. I specifically palpate the right popliteal area and the right calf area, and she denies any pain or discomfort. She did admit to some swelling in the right leg from time to time. Skin without rash. Neurologic examination is nonfocal. IMAGING: Her chest x-ray from November 09 is reviewed. Likewise her Doppler of November 09 is reviewed which revealed a popliteal and right calf DVT. Finally, her ventilation/perfusion lung scan from November 10 is reviewed which shows high probability for pulmonary embolism. The chest CT done without contrast does not reveal a right paratracheal mass. There is a right middle lobe nodule less than 9 mm in size that will need to be followed. LABS: Reviewed. White count 7.3, hemoglobin 11.9, hematocrit 36.2, platelet count 124,000. PT/INR normal. PTT is 112.2. Sodium and potassium normal. Chloride 113, CO2 18. Anion gap is 10. BUN and creatinine were 19 and 1.26. Troponins were modestly elevated at 0.070, 0.119 and 0.092. These are likely because of the pulmonary embolism. In addition, the N-terminal proBNP was mildly elevated initially at 810 and the 1870. This is also likely secondary to the pulmonary embolism. ASSESSMENT: 1. Right-sided pulmonary embolism with a right popliteal/calf deep venous thrombosis, without provocation. 2. Previous history of pulmonary embolism, status post 6 months of Coumadin therapy. 3. History of hypertension. 4. History of hyperlipidemia. 5. History of chronic kidney disease. 6. Possible right paratracheal mass as seen on chest x-ray, not confirmed on contrast negative CT scan. PLAN: The patient will have a hematology consultation. The CT scan did not show mass in the right paratracheal area. There is a nodule in the right middle lung which will need to be followed. She will follow up with Dr. Somers. She will at least need 6 months of therapy and probably longer. We will wait for Hematology's input. Additional recommendations and suggestions are forthcoming. This is a non-provoked blood clot. Will follow. MMODL / IJN: [id number] /
--- NOTE | 2018-11-10 18:34 | P.PN ---
Subjective 88-year-old female admitted for pulmonary embolism and the patient anti- correlation will be transitioned from heparin to Eliquis no dose adjustment is necessary for failure for PE area this is secondary PE because of which patient will need lifelong anti-correlation patient has a right ankle for DVT as well. Patient does have paratracheal lymphadenopathy for which patient will follow with Dr. Cage and as outpatient for possible biopsy. Constitutional: Denied any fatigue denied any fever. Cardio vascular: denied any chest pain, palpitations Gastrointestinal denied any nausea vomiting Pulmonary: Denied any shortness of breath cough Neurologic denied any new focal deficits All inpatient medications were reviewed and appropriate changes in these medications as dictated in the interval history and assessment and plan. Objective - Vital Signs Vital signs: Vital Signs Temp 98.1 F 11/10/18 15:45 Pulse 104 H 11/10/18 15:45 Resp 18 11/10/18 15:45 BP 150/73 11/10/18 15:45 Pulse Ox 94 L 11/10/18 15:45 Intake & Output 11/09/18 11/10/18 11/10/18 18:59 06:59 18:59 Intake Total 360 95.244 397.364 Balance 360 95.244 397.364 Weight 87.997 kg 86.7 kg Intake: IV 80 Heparin Sod,Pork in 0.45% 80 NaCl 25,000 unit In 0.45 % NaCl 1 250ml.bag @ 18 UNITS/KG/HR 15.83 mls/hr IV .[id number] Rx#: [id number] Intake, IV Titration 95.244 95.364 Amount Heparin Sod,Pork in 0.45% 95.244 95.364 NaCl 25,000 unit In 0.45 % NaCl 1 250ml.bag @ 18 UNITS/KG/HR 15.83 mls/hr IV .[id number] [facility]INNY Rx#: [id number] Oral 360 222 Other: Voiding Method Toilet Toilet # Voids 1 1 1 - Exam PHYSICAL EXAMINATION: GENERAL: The patient is alert and oriented x3, not in any acute distress. Well developed, well nourished. HEENT: Pupils are round and equally reacting to light. EOMI. No scleral icterus. No conjunctival pallor. Normocephalic, atraumatic. No pharyngeal erythema. No thyromegaly. CARDIOVASCULAR: S1 and S2 present. No murmurs, rubs, or gallops. PULMONARY: Chest is clear to auscultation, no wheezing or crackles. ABDOMEN: Soft, nontender, nondistended, normoactive bowel sounds. No palpable organomegaly. MUSCULOSKELETAL: No joint swelling or deformity. EXTREMITIES: No cyanosis, clubbing, or pedal edema. NEUROLOGICAL: Gross neurological examination did not reveal any focal deficits. SKIN: Multiple areas of bruising secondary to heparin - Labs CBC & Chem 7: 11/10/18 05:37 11/09/18 13:15 Labs: Abnormal Lab Results - Last 24 Hours (Table) 11/09/18 11/09/18 11/10/18 Range/Units 19:37 22:21 00:25 RBC (3.80-5.40) m/uL MCV (80.0-100.0) fL Plt Count (150-450) k/uL APTT >200.0 H* (22.0-30.0) sec Troponin I 0.119 H* 0.092 H* (0.000-0.034) ng/mL LDL Cholesterol, Calc (0-99) mg/dL 11/10/18 11/10/18 11/10/18 Range/Units 05:37 05:37 05:37 RBC 3.54 L (3.80-5.40) m/uL MCV 102.1 H (80.0-100.0) fL Plt Count 124 L (150-450) k/uL APTT 112.2 H* (22.0-30.0) sec Troponin I (0.000-0.034) ng/mL LDL Cholesterol, Calc 104 H (0-99) mg/dL 11/10/18 Range/Units 15:15 RBC (3.80-5.40) m/uL MCV (80.0-100.0) fL Plt Count (150-450) k/uL APTT 54.8 H (22.0-30.0) sec Troponin I (0.000-0.034) ng/mL LDL Cholesterol, Calc (0-99) mg/dL Assessment and Plan Plan: Pulmonary embolism: Patient will need to be on lifelong anticoagulation and patient has paratracheal lymphadenopathy which probably will need to be biopsied as an outpatient continue with the [place] correlation as mentioned above -Troponin elevation secondary to pulmonary embolism and chronic kidney disease #Current chronic renal insufficiency stage III baseline creatinine around 1.2 secondary to hypertensive nephrosclerosis -Hypertension -Hyperlipidemia -Essential hypertension -Severe tricuspid regurgitation.
[2018-11-10] MEDS: SODIUM CHLORIDE 0.9% 1,000 ML IV SCH (20:21)
[2018-11-10] MEDS ORDERED: ATORVASTATIN 10 MG TAB PO SCH (21:00)
[2018-11-10] MEDS ORDERED: ACETAMINOPHEN TAB 325 MG TAB PO PRN (22:24)
[2018-11-11 06:10] LABS: Basophils # (A) 0.1 k/uL (0-0.2); Basophils % (A) 1 %; Eosinophils # (A) 0.3 k/uL (0-0.7); Eosinophils % (A) 4 %; HCT 35.4 % (34.0-46.0); HGB 11.4 gm/dL (11.4-16.0); Hypochromasia Slight; Lymphocytes # (A) 2.4 k/uL (1.0-4.8); Lymphocytes % (A) 35 %; MCH 33.5 pg (25.0-35.0); MCHC 32.1 g/dL (31.0-37.0); MCV 104.3 fL (80.0-100.0); Macrocytosis Slight; Mean Platelet Volume 7.4; Monocytes # (A) 0.4 k/uL (0-1.0); Monocytes % (A) 6 %; Neutrophils # (A) 3.4 k/uL (1.3-7.7); Neutrophils % (A) 51 %; Platelet Count 129 k/uL (150-450); RBC 3.39 m/uL (3.80-5.40); RDW 12.4 % (11.5-15.5); WBC 6.6 k/uL (3.8-10.6)
[2018-11-11] MEDS: HEPARIN SOD,PORK IN 0.45% NACL 25,000 UNIT in 0.45% NACL 1 250ML.BAG IV SCH (06:11)
[2018-11-11] MEDS: SODIUM CHLORIDE 0.9% 1,000 ML IV SCH (06:12)
[2018-11-11] MEDS: NITROGLYCERIN OINT 1 INCH/GM PACKET TOPICAL SCH ×3 (06:12→11:47)
[2018-11-11 06:18] LABS: Partial Thromboplastin Time 58.7 sec (22.0-30.0); Prothrombin Time 10.6 sec (9.0-12.0)
[2018-11-11 06:37] LABS: Calcium 9.4 mg/dL (8.4-10.2)
--- NOTE | 2018-11-11 07:37 | P.PN ---
Subjective Progress Note Date: 11/11/18 Principal diagnosis: Pulmonary embolism This is a pleasant 88-year-old female patient with a past medical history significant for chronic renal disease as well as history of PE in the past was admitted to the hospital was atypical chest discomfort and shortness of breath and was diagnosed with a PE. The venous duplex study revealed DVT in the right lower extremity. The CTA of the chest revealed a PE. On follow-up with the patient today, 11/11/2018, the patient remains hemodynamically stable. Overall she is feeling better. The chest pain and shortness of breath has improved. She is on oral anticoagulation at this point. Objective - Vital Signs Vital signs: Vital Signs Temp 97.9 F 11/11/18 04:00 Pulse 76 11/11/18 04:00 Resp 18 11/11/18 04:00 BP 128/68 11/11/18 04:00 Pulse Ox 96 11/11/18 04:00 Intake & Output 11/10/18 11/11/18 11/11/18 18:59 06:59 18:59 Intake Total 397.364 Balance 397.364 Weight 87.6 kg Intake: IV 80 Heparin Sod,Pork in 0.45% 80 NaCl 25,000 unit In 0.45 % NaCl 1 250ml.bag @ 18 UNITS/KG/HR 15.83 mls/hr IV .[id number] GINNY Rx#: [id number] Intake, IV Titration 95.364 Amount Heparin Sod,Pork in 0.45% 95.364 NaCl 25,000 unit In 0.45 % NaCl 1 250ml.bag @ 18 UNITS/KG/HR 15.83 mls/hr IV .[id number] GINNY Rx#: [id number] Oral 222 Other: Voiding Method Toilet Toilet # Voids 1 1 - Constitutional General appearance: Present: no acute distress - Respiratory Respiratory: bilateral: CTA - Cardiovascular Rhythm: regular Heart sounds: normal: S1, S2 - Labs CBC & Chem 7: 11/11/18 05:43 11/11/18 05:43 Labs: Abnormal Lab Results - Last 24 Hours (Table) 11/10/18 11/11/18 11/11/18 Range/Units 15:15 05:43 05:43 RBC 3.39 L (3.80-5.40) m/uL MCV 104.3 H (80.0-100.0) fL Plt Count 129 L (150-450) k/uL APTT 54.8 H 58.7 H (22.0-30.0) sec Chloride (98-107) mmol/L Carbon Dioxide (22-30) mmol/L Creatinine (0.52-1.04) mg/dL Glucose (74-99) mg/dL 11/11/18 Range/Units 05:43 RBC (3.80-5.40) m/uL MCV (80.0-100.0) fL Plt Count (150-450) k/uL APTT (22.0-30.0) sec Chloride 116 H (98-107) mmol/L Carbon Dioxide 19 L (22-30) mmol/L Creatinine 1.28 H (0.52-1.04) mg/dL Glucose 105 H (74-99) mg/dL Assessment and Plan Assessment: Assessment #1 recurrent PE #2 mildly abnormal cardiac enzymes secondary to PE #3 multiple comorbid conditions Plan #1 continue oral anticoagulation, probably indefinitely #2 follow-up with the patient.
[2018-11-11] MEDS: IPRATROPIUM-ALBUTEROL 3 ML NEB INHALATION SCH ×3 (07:59→16:35)
[2018-11-11] MEDS: ASPIRIN 81 MG PO SCH (08:35)
[2018-11-11] MEDS: amLODIPine 10 MG TAB PO SCH (08:35)
[2018-11-11] MEDS ORDERED: APIXABAN 5 MG TAB PO SCH (09:00)
[2018-11-11 11:16] VITALS: RESP 17
[2018-11-11 11:49] VITALS: BP 123/61; PULSE 84; TEMP 97
--- NOTE | 2018-11-11 15:11 | P.PN ---
Subjective Progress Note Date: 11/11/18 Principal diagnosis: Pulmonary embolism/DVT Patient is seen today 11/11/2017 in follow-up on the regular medical floor. She is awake and alert in no acute distress. She denies any shortness of breath , cough or congestion. No right-sided chest discomfort. No right lower extremity pain. She has been transitioned to Eliquis. She is maintaining O2 saturations in the 90s on room air. She's been afebrile. Hemodynamically stable. White count 6.6. Hemoglobin 11.4. Creatinine 1.28. Objective - Vital Signs Vital signs: Vital Signs Temp 97.0 F L 11/11/18 11:48 Pulse 84 11/11/18 11:49 Resp 17 11/11/18 11:49 BP 123/61 11/11/18 11:48 Pulse Ox 96 11/11/18 11:48 Intake & Output 11/10/18 11/11/18 11/11/18 18:59 06:59 18:59 Intake Total 397.364 850 Balance 397.364 850 Weight 87.6 kg Intake: IV 80 Heparin Sod,Pork in 0.45% 80 NaCl 25,000 unit In 0.45 % NaCl 1 250ml.bag @ 18 UNITS/KG/HR 15.83 mls/hr IV .[id number] GINNY Rx#: [id number] Intake, IV Titration 95.364 250 Amount Heparin Sod,Pork in 0.45% 95.364 250 NaCl 25,000 unit In 0.45 % NaCl 1 250ml.bag @ 18 UNITS/KG/HR 15.83 mls/hr IV .[id number] GINNY Rx#: [id number] Oral 222 600 Other: Voiding Method Toilet Toilet Toilet # Voids 1 1 - Exam GENERAL EXAM: Alert, active, comfortable in no apparent distress. On room air. HEAD: Normocephalic. EYES: Normal reaction of pupils, equal size. NOSE: Clear with pink turbinates. THROAT: No erythema or exudates. NECK: No masses, no JVD. CHEST: No chest wall deformity. LUNGS: Equal air entry with no crackles, wheeze, rhonchi or dullness. CVS: S1 and S2 normal with no audible murmur, regular rhythm. ABDOMEN: No hepatosplenomegaly, normal bowel sounds, no guarding or rigidity. SPINE: No scoliosis or deformity SKIN: No rashes CENTRAL NERVOUS SYSTEM: No focal deficits, tone is normal in all 4 extremities. EXTREMITIES: There is no peripheral edema. No clubbing, no cyanosis. Peripheral pulses are intact. - Labs CBC & Chem 7: 11/11/18 05:43 11/11/18 05:43 Labs: Abnormal Lab Results - Last 24 Hours (Table) 11/10/18 11/11/18 11/11/18 Range/Units 15:15 05:43 05:43 RBC 3.39 L (3.80-5.40) m/uL MCV 104.3 H (80.0-100.0) fL Plt Count 129 L (150-450) k/uL APTT 54.8 H 58.7 H (22.0-30.0) sec Chloride (98-107) mmol/L Carbon Dioxide (22-30) mmol/L Creatinine (0.52-1.04) mg/dL Glucose (74-99) mg/dL 11/11/18 Range/Units 05:43 RBC (3.80-5.40) m/uL MCV (80.0-100.0) fL Plt Count (150-450) k/uL APTT (22.0-30.0) sec Chloride 116 H (98-107) mmol/L Carbon Dioxide 19 L (22-30) mmol/L Creatinine 1.28 H (0.52-1.04) mg/dL Glucose 105 H (74-99) mg/dL Assessment and Plan Assessment: Impression: #1 Dyspnea secondary to a right-sided pulmonary emboli. There is also a noted 8.7 mm right middle lobe lateral segment nodular density. #2 Acute right lower extremity DVT. #3 Prior history of pulmonary embolism status post 6 months of warfarin. #4 Hypertension. #5 Hyperlipidemia. #6 Chronic renal disease. Plan: The patient was seen and evaluated by Dr. Elkins. She is stable from the pulmonary standpoint. She has been transitioned to Eliquis. She is cleared for discharge from pulmonary standpoint. She should follow-up with Dr. Somers in our office in 1 week's time. Follow-up computed tomography scan of the chest advice for 3 months based on the nodular density in the right middle lobe. I, the cosigning physician, performed a history & physical examination of the patient. Lungs sounds are clear. Maintaining good O2 saturations in the 90s on room air. I discussed the assessment and plan of care with my nurse practitioner, Oneyda Mathews. I attest to the above note as dictated by her.
--- NOTE | 2018-11-12 16:05 | P.DS ---
Providers Date of admission: 11/09/18 15:20 Expected date of discharge: 11/11/18 Attending physician: Deni Cavazos Consults: 11/09/18 15:20 Consult Physician Urgent Consulting Provider: Nakia Somers Consult Reason/Comments: Dyspnea, chest Do you want consulting provider notified?: Yes Consult Physician Urgent Consulting Provider: Harris Robertson Consult Reason/Comments: chest pressure, dyspnea Do you want consulting provider notified?: Yes Primary care physician: Nakia Somers Hospital Course: Final Diagnoses: Pulmonary embolism, recurrent with right popliteal, upper calf DVT: Patient will need to be on lifelong anticoagulation. -Troponin elevation secondary to pulmonary embolism and chronic kidney disease #Current chronic renal insufficiency stage III baseline creatinine around 1.2 secondary to hypertensive nephrosclerosis -Hypertension -Hyperlipidemia -Essential hypertension -Severe tricuspid regurgitation. -paratracheal lymphadenopathy which probably will need to be biopsied as an outpatient, f/u with pulmonary & Dr. Cage cardiothoracic surgery for possible bx.. Hospital course: This is a pleasant 88-year-old female admitted for pulmonary embolism, recurrent. Anticoagulated on heparin drip, transitioned to Eliquis.patient will need to be on lifelong anticoagulation given this is recurrent. Evaluated by cardiology and pulmonary. Also recommending outpatient follow-up with hematology, Dr. SEAMAN, regarding anticoagulable workup. Significant clinical improvement. Patient has been cleared by all consults. Patient is being discharged home in a stable condition with guarded prognosis. EXAMINATION: GENERAL: alert and oriented x3, no acute distress. CARDIOVASCULAR: S1 and S2 present. No murmurs, rubs, or gallops. PULMONARY: Chest is clear to auscultation, no wheezing or crackles. ABDOMEN: Soft, nontender, nondistended, normoactive bowel sounds. No palpable organomegaly. NEUROLOGICAL: Gross neurological examination did not reveal any focal deficits. The impression and plan of care has been dictated as directed. : I performed a history and examination of this patient, discussed the same with the dictator. I agree with the dictator's note ,documented as a scribe. Any additional findings or plans will be noted. Time taken: 35 minutes Patient Condition at Discharge: Stable Plan - Discharge Summary Discharge Rx Participant: Yes New Discharge Prescriptions: New Apixaban [Eliquis] 10 mg PO BID tab Continue Aspirin EC [Ecotrin Low Dose] 81 mg PO DAILY tablet. Nitroglycerin Sl Tabs [Nitrostat] 0.4 mg SUBLINGUAL Q5M PRN #25 tab PRN Reason: Chest Pain amLODIPine [Norvasc] 10 mg PO DAILY Simvastatin [Zocor] 20 mg PO HS Acetaminophen Tab [Tylenol] 1,000 mg PO Q4H PRN PRN Reason: Pain Discharge Medication List Aspirin EC [Ecotrin Low Dose] 81 mg PO DAILY tablet. 01/07/16 [Rx] Nitroglycerin Sl Tabs [Nitrostat] 0.4 mg SUBLINGUAL Q5M PRN #25 tab 01/07/16 [Rx ] Acetaminophen Tab [Tylenol] 1,000 mg PO Q4H PRN 11/09/18 [History] Simvastatin [Zocor] 20 mg PO HS 11/09/18 [History] amLODIPine [Norvasc] 10 mg PO DAILY 11/09/18 [History] Apixaban [Eliquis] 10 mg PO BID tab 11/11/18 [Rx] Follow up Appointment(s)/Referral(s): Harris Robertson MD [STAFF PHYSICIAN] - 11/26/18 8:45 am () Oneyda Mathews NPC [Nurse Practitioner] - 11/20/18 2:45 pm (Friday) [facility], [NON-STAFF] - Nakia Somers MD [Primary Care Provider] - 11/20/18 2:45 pm (Friday with Dr. Mathews) Landon Cage MD [STAFF PHYSICIAN] - 10 Days (after F/U with pulmonary.) Ambulatory/Diagnostic Orders: Complete Blood Count w/diff [LAB.AMB] Time Frame: 3 Days, Location: None Selected Patient Instructions/Handouts: Pulmonary Embolism (DC), Safe Use of Anticoagulants (DC) Activity/Diet/Wound Care/Special Instructions: [place] covered - copay $43 Discharge Disposition: HOME WITH HOME HEALTH SERVICES
== END 2018-11-11 17:19 | disposition home health service (06) | DRG 176 ==
LOC: EC 12:21 → 3SCARD 15:20
PROVIDERS: ADMIT Hospitalist; ATTEND Hospitalist
DX: I26.99 Other pulmonary embolism without acute cor pulmonale (principal); D69.3 Immune thrombocytopenic purpura; I82.4Z1 Acute embolism and thrombosis of unspecified deep veins of right distal lower extremity; I82.431 Acute embolism and thrombosis of right popliteal vein; E78.5 Hyperlipidemia, unspecified; I36.1 Nonrheumatic tricuspid (valve) insufficiency; I13.10 Hypertensive heart and chronic kidney disease without heart failure, with stage 1 through stage 4 chronic kidney disease, or unspecified chronic kidney disease; I27.29 Other secondary pulmonary hypertension; M19.91 Primary osteoarthritis, unspecified site; N18.3 Chronic kidney disease, stage 3 (moderate); R77.9 Abnormality of plasma protein, unspecified; R07.89 Other chest pain; R59.0 Localized enlarged lymph nodes; Z79.82 Long term (current) use of aspirin; Z79.899 Other long term (current) drug therapy; Z86.711 Personal history of pulmonary embolism; Z87.891 Personal history of nicotine dependence; Z98.42 Cataract extraction status, left eye; Z98.41 Cataract extraction status, right eye; Z96.1 Presence of intraocular lens; Z82.49 Family history of ischemic heart disease and other diseases of the circulatory system
CPT/HCPCS: 36415; 71046; 71250; 78582; 80048; 80053; 80061; 82550; 82553; 83880; 84484; 85025; 85610; 85730; 93005; 93306; 93970; 94640; 94760; 96365; 96376; 99285

== ENCOUNTER → 2019-05-17 | Outpatient (CLI) | payer MEDICARE, BC ==
[2019-05-17 12:53] LABS: Basophils # (A) 0.1 k/uL (0-0.2); Basophils % (A) 1 %; Eosinophils # (A) 0.2 k/uL (0-0.7); Eosinophils % (A) 3 %; HGB 11.8 gm/dL (11.4-16.0); Lymphocytes # (A) 2.3 k/uL (1.0-4.8); Lymphocytes % (A) 33 %; MCH 32.6 pg (25.0-35.0); MCHC 31.9 g/dL (31.0-37.0); Mean Platelet Volume 6.9; Monocytes # (A) 0.4 k/uL (0-1.0); Monocytes % (A) 5 %; Neutrophils # (A) 3.8 k/uL (1.3-7.7); Neutrophils % (A) 55 %; Platelet Count 183 k/uL (150-450); RBC 3.63 m/uL (3.80-5.40); RDW 12.2 % (11.5-15.5); WBC 6.9 k/uL (3.8-10.6)
[2019-05-17 19:06] LABS: African American GFR (CKD) 31.1 (60.0-200.0); Albumin/Globulin Ratio 1.48 (1.60-3.17); Anion Gap 8.1 mmol/L (4.00-12.00); BUN/Creat Ratio 18.24 Ratio (12.00-20.00); Calcium 9.4 mg/dL (8.7-10.3); Carbon Dioxide 19.9 mmol/L (21.6-31.8); Globulin 2.7 g/dL (1.6-3.3); Potassium 4.8 mmol/L (3.5-5.5); Total Bilirubin 0.6 mg/dL (0.2-1.2); Total Protein 6.7 g/dL (6.2-8.2)
== END | disposition home or self-care (01) ==
LOC: LABWHC1 12:19
PROVIDERS: ATTEND Internal Medicine Critical Care Medicine
DX: Z00.00 Encounter for general adult medical examination without abnormal findings (principal)
CPT/HCPCS: 36415; 80053; 85025

== ENCOUNTER → 2019-11-16 | Outpatient (CLI) | payer MEDICARE, BC ==
[2019-11-16 13:17] LABS: Basophils # (A) 0.1 k/uL (0-0.2); Basophils % (A) 2 %; Eosinophils # (A) 0.2 k/uL (0-0.7); Eosinophils % (A) 3 %; HCT 38.9 % (34.0-46.0); HGB 12.6 gm/dL (11.4-16.0); Lymphocytes % (A) 35 %; MCH 33.6 pg (25.0-35.0); MCHC 32.4 g/dL (31.0-37.0); MCV 103.6 fL (80.0-100.0); Macrocytosis Slight; Mean Platelet Volume 8.3; Monocytes # (A) 0.3 k/uL (0-1.0); Monocytes % (A) 5 %; Neutrophils % (A) 52 %; Platelet Count 136 k/uL (150-450); RBC 3.76 m/uL (3.80-5.40); RDW 11.9 % (11.5-15.5); WBC 5.7 k/uL (3.8-10.6)
[2019-11-16 18:42] LABS: African American GFR (CKD) 30.9 (60.0-200.0); Albumin 4.2 g/dL (3.80-4.90); Albumin/Globulin Ratio 1.56 (1.60-3.17); BUN/Creat Ratio 14.71 Ratio (12.00-20.00); Chol/HDL Ratio 2.49; Globulin 2.7 g/dL (1.6-3.3); LDL Cholesterol,Calculated 69.8 mg/dL (0.0-131.0); Non-African American GFR(CKD) 26.6 (60.0-200.0); Potassium 4.5 mmol/L (3.5-5.5); Total Bilirubin 0.8 mg/dL (0.2-1.2); Total Protein 6.9 g/dL (6.2-8.2); VLDL Calculation 15.2 mg/dL (5.00-40.00)
== END | disposition home or self-care (01) ==
LOC: LABWHC1 11:37
PROVIDERS: ATTEND Internal Medicine Critical Care Medicine
DX: E78.5 Hyperlipidemia, unspecified (principal); N19 Unspecified kidney failure; E55.9 Vitamin D deficiency, unspecified
CPT/HCPCS: 36415; 80053; 80061; 82306; 82607; 85025

== ENCOUNTER → 2019-11-30 | Outpatient (CLI) | payer MEDICARE, BC ==
--- NOTE | 2019-11-30 12:50 | ECHOF ---
Referral Reason:I26.99 pulmonary embolism MEASUREMENTS -------- HEIGHT: 167.6 cm WEIGHT: 85.3 kg BP: IVSd: 1.3 cm (0.6 - 1.1) LVIDd: 4.7 cm (3.9 - 5.3) LVPWd: 1.6 cm (0.6 - 1.1) IVSs: 2.1 cm LVIDs: 2.7 cm LVPWs: 1.8 cm RVIDd: 2.6 cm (< 3.3) LAESV Index (A-L): 39.12 ml/m Ao Diam: 3.5 cm (2.0 - 3.7) LA Diam: 4.5 cm (2.7 - 3.8) AV Cusp: 1.7 cm (1.5 - 2.6) EPSS: 0.4 cm MV E Isael: 0.74 m/s MV DecT: 238 ms MV A Isael: 1.37 m/s MV E/A Ratio: 0.54 RAP: 5.00 mmHg RVSP: 30.68 mmHg MV EF SLOPE: 33.19 mm/s (70 - 150) MV EXCURSION: 11.11 mm (> 18.000) FINDINGS -------- Sinus rhythm. This was a technically adequate study. The left ventricular size is normal. There is moderate concentric left ventricular hypertrophy. O verall left ventricular systolic function is low-normal with, an EF between 50 - 55 %. Increased LA P Grade 2 Diastolic Dysfunction. The right ventricle is normal in size. LA is moderately dilated 34-39 ml/m2 The right atrial size is normal. Interatrial and interventricular septum intact. The aortic valve is trileaflet and appears structurally normal. There is mild aortic valve sclerosi s. There is no evidence of aortic regurgitation. There is no evidence of aortic stenosis. Mild mitral annular calcification present. Bdlx-yj-vabulhsd mitral regurgitation is present. Mild tricuspid regurgitation present. There is borderline pulmonary hypertension. The right ventr icular systolic pressure, as measured by Doppler, is 30.68mmHg. Trace/mild (physiologic) pulmonic regurgitation. The aortic root size is normal. The inferior vena cava is mildly dilated. There is a trivial pericardial effusion present. Small Pleural Effusion. CONCLUSIONS -------- 1. Sinus rhythm. 2. This was a technically adequate study. 3. The left ventricular size is normal. 4. There is moderate concentric left ventricular hypertrophy. 5. Overall left ventricular systolic function is low-normal with, an EF between 50 - 55 %. 6. Increased LAP Grade 2 Diastolic Dysfunction. 7. The right ventricle is normal in size. 8. LA is moderately dilated 34-39 ml/m2 9. The right atrial size is normal. 10. Interatrial and interventricular septum intact. 11. The aortic valve is trileaflet and appears structurally normal. 12. There is mild aortic valve sclerosis. 13. There is no evidence of aortic regurgitation. 14. There is no evidence of aortic stenosis. 15. Mild mitral annular calcification present. 16. Uzyh-gd-fpsnmcld mitral regurgitation is present. 17. Mild tricuspid regurgitation present. 18. There is borderline pulmonary hypertension. 19. The right ventricular systolic pressure, as measured by Doppler, is 30.68mmHg. 20. Trace/mild (physiologic) pulmonic regurgitation. 21. The aortic root size is normal. 22. The inferior vena cava is mildly dilated. 23. There is a trivial pericardial effusion present. 24. Small Pleural Effusion. CHANGEOVER OPERATOR: Miranda Resendez RDCS
== END | disposition home or self-care (01) ==
LOC: RADECHMAIN 11:03
PROVIDERS: ATTEND Internal Medicine Critical Care Medicine
DX: I27.20 Pulmonary hypertension, unspecified (principal); I08.3 Combined rheumatic disorders of mitral, aortic and tricuspid valves; I31.3 Pericardial effusion (noninflammatory); J90 Pleural effusion, not elsewhere classified
CPT/HCPCS: 93306

== ENCOUNTER → 2020-09-04 | Outpatient (CLI) | payer MEDICARE, BC ==
--- NOTE | 2020-09-04 10:38 | CT ---
EXAMINATION TYPE: CT chest wo con DATE OF EXAM: 09/04/2020 COMPARISON: 12/30/2012 HISTORY: pneumonia CT DLP: 309.[address] of the chest was performed with lung and mediastinal window settings submitted. The la ck of contrast limits evaluation of the vascular, mediastinal and parenchymal structures including th e upper abdomen. LUNGS: Large area of airspace consolidation left lower lobe with additional focal areas of airspace a nd groundglass infiltrate identified as scattered bilaterally some of which demonstrate a nodular orlando earance. The findings likely reflect pneumonia however continued progress studies until resolution ad vised. Nodules of other etiology are difficult to exclude. MEDIASTINUM/ADRIANA: Thoracic aorta is of normal caliber with limited evaluation given lack of contrast . The heart is not enlarged. Small pericardial effusion. No evidence for mediastinal mass. No lym ph nodes greater than 1cm. UPPER ABDOMEN: Renal cystic changes OTHER: No significant other abnormality. IMPRESSION: 1. Findings felt to reflect multifocal pneumonia. Some of these areas of infiltrate does demonstrate a nodular appearance. Correlate for pneumonia however appropriate follow-up until resolution is advi sed.
== END | disposition home or self-care (01) ==
LOC: RADCTMAIN 08:58
PROVIDERS: ATTEND Internal Medicine Critical Care Medicine
DX: J18.1 Lobar pneumonia, unspecified organism (principal)
CPT/HCPCS: 71250; 82565; 84520

== ENCOUNTER → 2020-09-05 | Outpatient (CLI) | payer MEDICARE, BC | END | disposition home or self-care (01) | LOC: LABWHC1 15:59 | PROVIDERS: ATTEND Internal Medicine Critical Care Medicine | DX: R05 Cough (principal) | CPT/HCPCS: U0003; C9803 ==

== ENCOUNTER 2020-09-21 09:51 | Inpatient (IN) | payer MEDICARE, BC ==
[~2020-09-21 09:51] MED LIST: ALBUTEROL NEB (CONC) 2.5 MG/0.5 ML INHALATION ONE; DEXAMETHASONE SOD PHOSPHATE 4 MG/ML 1 ML VIAL IV ONE; LIDOCAINE 1% (10MG/ML) FOR IV START INTRADERMA PRN; LIDOCAINE 2% (PF) 20 MG/ML 5 ML VIAL INHALATION ONE; LIDOCAINE VISCOUS 300 MG/15 ML CUP MUCOUS MEM ONE; MIDAZOLAM 2 MG/2 ML VIAL IV PRN; ONDANSETRON 4 MG/2 ML VIAL IVP ONE
[2020-09-21] MEDS: LACTATED RINGERS 1,000 ML IV SCH (10:39)
--- NOTE | 2020-09-21 11:52 | CT ---
EXAMINATION TYPE: CT Chest wo con Veran Protocol DATE OF EXAM: 09/21/2020 COMPARISON: Prior chest CT September 04, 2020 and older CTs HISTORY: SOB, veran CT DLP: 608 mGycm Automated exposure control for dose reduction was used. FINDINGS: Exam is for bronchoscopy planning and not for diagnostic purposes. Persistent small left pleural fluid collection. Persistent organizing consolidation with surrounding reticulation and groundglass opacity in the left lung base laterally. Multifocal areas of irregular c onsolidation throughout the lungs is redemonstrated bilaterally. Stable small to moderate size anteri or pericardial effusion. Coronary artery calcification redemonstrated. Focal ectasia of the aorta mona r the diaphragm redemonstrated. Underlying scoliosis again seen. IMPRESSION: As above.
[2020-09-21] MEDS ORDERED: ROCURONIUM 10 MG/ML (10 ML VIAL) IV ONE (12:16)
[2020-09-21] MEDS ORDERED: PROPOFOL 10 MG/ML 20 ML VIAL IV ONE (12:16)
[2020-09-21] MEDS ORDERED: ePHEDrine SULFATE/0.9% NACL/PF 50 MG/5 ML SYRINGE IV ONE (12:16)
[2020-09-21] MEDS ORDERED: SUCCINYLCHOLINE CHLORIDE 100 MG/5 ML SYR IV ONE (12:16)
[2020-09-21] MEDS ORDERED: PHENYLEPHRINE 10 MG/ML VIAL ONE (12:16)
--- NOTE | 2020-09-21 13:59 | P.CNPUL ---
History of Present Illness Consult date: 09/21/20 Chief complaint: Endobronchial bleed post-bronchoscopy History of present illness: 89-year-old female patient who is very well-known to me. Of taking care of this patient for many years. During a recent evaluation August 2020, the patient started having increased cough and congestion and mucus production that was nonbloody. She is not having any fever or chills. No hemoptysis. No exposure to covid 19. At that time a chest x-ray was a myopathy showed extensive left lower lobe pneumonia. I give the patient course of antibiotics with Levaquin. Subsequently, there was no improvement. A CAT scan of the chest was done and it showed significant abnormalities. Specifically organizing consolidation and articulation with groundglass opacity in the left lung. Multiple areas of irregular consolidation throughout the lung was demonstrated. There was a stable small to moderate-sized anterior pericardial effusion. Covid 19 testing was negative. Based on all this, the plan was to do a bronchoscopy and obtain a bronchioloalveolar lavage and transbronchial biopsy of the left lower lobe. The patient came in today. She was in good shape. I saw her in preop. I performed a navigational bronchoscopy on this patient. Following the Biopsy from the left lower lobe, the patient had massive endobronchial bleeding. During the process, limited amount of blood was aspirated from the left lung in order of 250 mL. There was some blood clot formation. Oxygenation was not left as the patient was intubated on a mechanical ventilator. Ultimately, the bleeding stopped and the residual leftover blood airway was suctioned out. The patient was kept on a mechanical ventilator. The patient was not extubated. The patient was requested to the ICU for further care. Currently she is hemodynamically stable. She is on a mechanical ventilator to anesthesia. The patient is currently on a pressure control mode of ventilation with FiO2 of 100% and a PEEP of 5. Her saturation is low that of 99%. Cardiac rhythm is sinus for now. The patient remained hemodynamically stable. The patient was taken anticoagulation in the form of dialysis with on outpatient basis. She was asked to stop anticoagulation dandy operator 8 hours prior to this procedure. Review of Systems ROS unobtainable: due to endotracheal tube Past Medical History Past Medical History: Deep Vein Thrombosis (DVT), Hyperlipidemia, Hypertension, Osteoarthritis (OA), Pulmonary Embolus (PE), Renal Disease Additional Past Medical History / Comment(s): hx. pulmonary embolus 2018, chronic renal failure, she is of a Christianity kash, cough & congestion for few months, course of steroids in Aug. History of Any Multi-Drug Resistant Organisms: None Reported Past Surgical History: Breast Surgery Additional Past Surgical History / Comment(s): "L breast lumpectomy-benign", cataracts removed-lens implants Past Anesthesia/Blood Transfusion Reactions: No Reported Reaction Smoking Status: Former smoker - Past Family History Father History Unknown: Yes Family Medical History: Hyperlipidemia, Hypertension Mother Family Medical History: Hypertension Medications and Allergies Home Medications Medication Instructions Recorded Confirmed Type Acetaminophen Tab [Tylenol] 1,000 mg PO Q4H PRN 11/09/18 09/21/20 History Simvastatin [Zocor] 20 mg PO HS 11/09/18 09/21/20 History amLODIPine [Norvasc] 10 mg PO DAILY 11/09/18 09/21/20 History Apixaban [Eliquis] 10 mg PO BID tab 11/11/18 09/21/20 Rx Allergies Allergy/AdvReac Type Severity Reaction Status Date / Time No Known Allergies Allergy Verified 09/19/20 10:38 Physical Exam Vitals: Vital Signs Temp Pulse Resp BP Pulse Ox 09/21/20 10:37 98.4 F 80 18 144/77 93 L Intake and Output 09/20/20 09/21/20 09/21/20 22:59 06:59 14:59 Intake Total 950 Balance 950 Intake: IV 950 Other: Weight 79 kg Gen. appearance she is currently comfortable likely distress currently sedated and paralyzed in the operating room. not in acute respiratory distress. Orotracheal tube is in place. Head exam was generally normal. There was no scleral icterus or corneal arcus. Mucous membranes were moist. Neck was supple and without jugular venous distension, thyromegaly, or carotid bruits. Carotids were easily palpable bilaterally. There was no adenopathy. Lungs sounds are diminished in the left lung base otherwise no wheezes or rhonchi. Cardiac exam revealed the PMI to be normally situated and sized. The rhythm was regular and no extrasystoles were noted during several minutes of auscultation. The first and second heart sounds were normal and physiologic splitting of the second heart sound was noted. There were no murmurs, rubs, clicks, or gallops. Abdominal exam revealed normal bowel sounds. The abdomen was soft, non-tender, and without masses, organomegaly, or appreciable enlargement of the abdominal aorta. Examination of the extremities revealed easily palpable radial, femoral and pedal pulses. There was no cyanosis, clubbing or edema. Examination of the skin revealed no evidence of significant rashes, suspicious appearing nevi or other concerning lesions. Neurologically, the patient is sedated for now. Results - Diagnostic Findings Chest x-ray: image reviewed Assessment and Plan Plan: 1 bilateral pulmonary infiltrates with extensive consolidation of the left lower lobe with areas of patchy groundglass pulmonary infiltrates bilaterally. The patient is full navigational bronchoscopy. 2 massive endobronchial bleeding. Has bronchial biopsy of the left lower lobe. Bleeding is currently inactive in stable and the patient will be kept sedated on a mechanical ventilator for the next 24 hours for further monitoring. 3 acute hypoxic respiratory failure secondary to above 4 previous history of pulmonary embolism, the patient was taken anticoagulation with Eliquis on outpatient basis. At the anticoagulation discontinued prior to this procedure. In addition the patient has a history of DVT of the right lower extremity 5 hypertension 6 hyperlipidemia 7 chronic kidney disease 8 the patient is a Christianity Plan The patient remains on a mechanical ventilator. I put her on a assist-control mode with a tidal volume of 400 with a PEEP of 5 and FiO2 of 100% with a rate of 20. FiO2 will be gradually weaned off. We'll obtain a blood gas and a chest x-ray once the patient arrived to the intensive care unit. IV fluids normal saline at the rate of 75 mL an hour Check coagulation profile Monitor Hemodynamically significant blood pressure There are some leftover clots within the airway. I may do another second bron choscopy tomorrow to reevaluate and do a therapeutic airway suctioning will give this patient sedated with propofol. Will monitor hemodynamics. Family was informed of this changes and will continue to follow. For now, the patient will be kept intubated and she'll be transferred to the ICU for monitoring.
--- NOTE | 2020-09-21 14:06 | P.PCN ---
Date of Procedure: 09/21/20 Preoperative Diagnosis: Multifocal patchy bilateral pulmonary infiltrates with consolidation of the left lower lobe Postoperative Diagnosis: Same Procedure(s) Performed: Navigational bronchoscopy and transbronchial biopsy of the left lower lobe Anesthesia: LORAINE Surgeon: Nakia Somers Occupational Therapist Aide #1: Oneyda Mathews Estimated Blood Loss (ml): 250 Pathology: other Condition: critical Disposition: ICU Operative Findings: I performed this navigational bronchoscopy in this patient. The procedure was done in the endoscopy suite. The patient underwent a preoperative CAT scan for the chest for routine planning and mapping of the left lower lobe consolidation. The Vpads would applied to the patient chest. Following that, the CAT scan was uploaded into the navigational system and the appropriate mapping of the left lower lobe consolidation was done. The patient was brought in today endoscopy suite. The patient was intubated with a #8 orotracheal tube. Intubation process was done by LEAD LEVEL DESIGNER. Following that, the flexible bronchoscope was introduced to the airway and an airway inspection was done. The visualized airways included the distal trachea, bilateral mainstem bronchi, right upper lobe bronchus, right middle lobe bronchus, right lower lobe bronchus, left upper lobe bronchus and left lower lobe bronchus. All of his airways are patent within normal limits. Cannulation was done utilizing the main pasha and the secondary pasha on the left as reference points. Following that, using navigational guidance, the bronchoscope was directed to the left lower lobe and under navigational guidance, around 5 transbronchial biopsies were obtained. Following the last biopsy. The patient had massive endobronchial bleeding from the lateral segment of the left lower lobe. Estimated blood loss was approximately 250 mL. During the process, I was unable to temponade involved segment. Massive amount of blood was aspirated from the airways. I performed therapeutic airway suctioning. During the process, the patient was adequately oxygenated and ventilated. The pulse oximeter at one point dropped in the mid 80% range and ultimately improved. The patient also had some transient hypotension and she was given ephedrine by LEAD LEVEL DESIGNER. She is currently hemodynamically stable. She is oxygenating well. Airway inspection was done. There was some residual blood clots within the distal trachea and some in the left lower lobe. I decided to keep the patient intubated and keep her on a mechanical ventilator and taken to the ICU and extubated at a later stage became more controlled setting. Note that the patient had taken sedation and paralytics during the process. A repeat hemoglobin will be done in the intensive care unit. For now the patient is intubated and sedated and she is hemodynamically stable. Family was informed of this changes. No bronchial alveolar lavage of the left lower lobe was done. Chest x-ray showed no evidence of any pneumothorax and there is pressure by the pulmonary infiltrates.
[2020-09-21] MEDS ORDERED: methylPREDNISolone SOD SUCCI 125 MG/2 ML VIAL IVP ONE (14:21)
--- NOTE | 2020-09-21 14:21 | XR ---
EXAMINATION TYPE: XR chest 1V DATE OF EXAM: 09/21/2020 COMPARISON: 11/09/2018 HISTORY: Post breath TECHNIQUE: Single frontal view of the chest is obtained. FINDINGS: ET tube is seen approximately 3 cm above the pasha. There are multiple bilateral pulmonar y masses and left-sided consolidation with small effusion. No sizable pneumothorax. Diffuse osteopeni a with arthropathy of the shoulders. IMPRESSION: 1. COPD with left-sided infiltrate and small effusion. No sizable pneumothorax. 2. Multiple pulmonary masses. Correlate for history of malignancy.
[2020-09-21] MEDS ORDERED: SODIUM CHLORIDE 0.9% 1,000 ML IV ONE (14:52)
[2020-09-21 15:08] LABS: Albumin 3.3 g/dL (3.5-5.0); Calcium 9.2 mg/dL (8.4-10.2); Potassium 4.5 mmol/L (3.5-5.1); Total Bilirubin 0.7 mg/dL (0.2-1.3); Total Protein 6.2 g/dL (6.3-8.2)
[2020-09-21 15:08] LABS: ABG Base Excess -5.6 mmol/L; ABG HCO3 23 mmol/L (21-25); ABG Oxygen Saturation 99.8 % (94-97); ABG PCO2 62 mmHg (35-45); ABG PO2 187 mmHg (83-108); ABG TCO2 25 mmol/L (19-24); Allen Test Performed? Yes
[2020-09-21 15:10] LABS: ABG PH 7.17 (7.35-7.45)
[2020-09-21] MEDS: HYDROmorphone 0.5 MG/0.5 ML SYRINGE IVP PRN ×2 (15:26→15:35)
[2020-09-21 15:33] LABS: Basophils % (A) 0 %; Eosinophils # (A) 0.1 k/uL (0-0.7); Eosinophils % (A) 1 %; HCT 39.5 % (34.0-46.0); HGB 12.5 gm/dL (11.4-16.0); Hypochromasia Slight; Lymphocytes # (A) 1.9 k/uL (1.0-4.8); Lymphocytes % (A) 23 %; MCHC 31.6 g/dL (31.0-37.0); MCV 107.5 fL (80.0-100.0); Macrocytosis Moderate; Mean Platelet Volume 8.5; Monocytes # (A) 0.2 k/uL (0-1.0); Monocytes % (A) 2 %; Neutrophils # (A) 5.8 k/uL (1.3-7.7); Neutrophils % (A) 73 %; Platelet Count 182 k/uL (150-450); RBC 3.68 m/uL (3.80-5.40); RDW 12.8 % (11.5-15.5); WBC 8.1 k/uL (3.8-10.6)
[2020-09-21 16:15] LABS: Glucose,Whole Blood 226 mg/dL (75-99)
[2020-09-21] MEDS: SODIUM CHLORIDE 0.9% 1,000 ML IV SCH (16:22)
[2020-09-21 16:46] LABS: ABG Base Excess -6.7 mmol/L; ABG HCO3 20 mmol/L (21-25); ABG Oxygen Saturation 96.1 % (94-97); ABG PCO2 45 mmHg (35-45); ABG PH 7.27 (7.35-7.45); ABG PO2 86 mmHg (83-108); ABG TCO2 22 mmol/L (19-24); Allen Test Performed? Yes
[2020-09-21 17:02] LABS: Prothrombin Time 10.1 sec (9.0-12.0)
[2020-09-21 17:35] LABS: Glucose,Whole Blood 200 mg/dL (75-99)
[2020-09-21] MEDS: methylPREDNISolone SOD SUCCI 125 MG/2 ML VIAL IV SCH (17:51)
[2020-09-21] MEDS: INSULIN ASPART (NovoLOG) 100 UNIT/ML VIAL SQ SCH ×2 (17:51→20:56)
[2020-09-21] MEDS ORDERED: CHLORHEXIDINE GLUCONATE 15 ML CUP MUCOUS MEM ONE (19:07)
[2020-09-21] MEDS: ALBUTEROL NEBULIZED 2.5 MG/3 ML INHALATION SCH (20:23)
--- NOTE | 2020-09-21 20:38 | P.HPIM ---
History of Present Illness This is a pleasant 89 years old female with past medical history of hypertension, hyperlipidemia, DVT/pulmonary embolism was on Eliquis 10 mg twice daily. Patient originally developed increased coughing with congestion and chest x-ray showing extensive left lower lobe pneumonia. Patient does not improve with antibiotics with Levaquin, CAT scan of the chest showed resistant organizing consolidation with surrounding articulation and groundglass opacity of the left lung base laterally. Multifocal areas of vertical or consolidation throughout the lungs is redemonstrated bilaterally. Patient underwent bronchoscopy today for bronchoalveolar lavage and obtaining transbronchial biopsy of the left lower lobe. However after the biopsy patient had massive endotracheal bleeding. Eventually patient kept intubated and transferred to the ICU for further management. Looks like the bleeding stopped and hemoglobin is noted to be monitored. Review of Systems N/a Past Medical History Past Medical History: Deep Vein Thrombosis (DVT), Hyperlipidemia, Hypertension, Osteoarthritis (OA), Pulmonary Embolus (PE), Renal Disease Additional Past Medical History / Comment(s): hx. pulmonary embolus 2018, chronic renal failure, she is of a [employer] kash, cough & congestion for few months, course of steroids in Aug. History of Any Multi-Drug Resistant Organisms: None Reported Past Surgical History: Breast Surgery Additional Past Surgical History / Comment(s): "L breast lumpectomy-benign", cataracts removed-lens implants Past Anesthesia/Blood Transfusion Reactions: No Reported Reaction Smoking Status: Former smoker - Past Family History Father History Unknown: Yes Family Medical History: Hyperlipidemia, Hypertension Mother Family Medical History: Hypertension Medications and Allergies Home Medications Medication Instructions Recorded Confirmed Type Acetaminophen Tab [Tylenol] 1,000 mg PO Q4H PRN 11/09/18 09/21/20 History Simvastatin [Zocor] 20 mg PO HS 11/09/18 09/21/20 History amLODIPine [Norvasc] 10 mg PO DAILY 11/09/18 09/21/20 History Apixaban [Eliquis] 10 mg PO BID tab 11/11/18 09/21/20 Rx Allergies Allergy/AdvReac Type Severity Reaction Status Date / Time No Known Allergies Allergy Verified 09/19/20 10:38 Physical Exam Vitals: Vital Signs Temp Pulse Resp BP Pulse Ox 09/21/20 10:37 98.4 F 80 18 144/77 93 L Intake and Output 09/20/20 09/21/20 09/21/20 22:59 06:59 14:59 Intake Total 1050 Balance 1050 Intake: IV 1050 Other: Weight 79 kg -GENERAL: The patient is sedated and intubated HEENT: Pupils are round and equally reacting to light. EOMI. No scleral icterus. No conjunctival pallor. Normocephalic, atraumatic. No pharyngeal erythema. No thyromegaly. CARDIOVASCULAR: S1 and S2 present. No murmurs, rubs, or gallops. PULMONARY: Chest is clear to auscultation, no wheezing or crackles. ABDOMEN: Soft, nontender, nondistended, normoactive bowel sounds. No palpable organomegaly. MUSCULOSKELETAL: No joint swelling or deformity. EXTREMITIES: No cyanosis, clubbing, or pedal edema. NEUROLOGICAL: Gross neurological examination did not reveal any focal deficits. SKIN: No rashes. no petechiae. Results CBC & Chem 7: 09/21/20 14:27 09/21/20 14:27 Assessment and Plan Assessment: Bilateral pneumonia male in the left lower lobe with patchy Labs pulmonary infi ltrate and organizing consolidation. Status post left bronchial biopsy, located by postprocedure bleeding Acute hypoxic respiratory failure, currently on mechanical ventilation Hypertension. Hyperlipidemia Chronic kidney disease Patient is [employer] History of DVT/PE Plan: This is an 89 years old female who presents with respiratory failure, and left bronchial biopsy complicated by bleeding. Continue with mechanical ventilation. Follow-up recommendation by pulmonary/critical care team Labs and medication were reviewed.. Continue same treatment. Continue with symptomatic treatment. Resume home medication. Monitor lytes and vitals. DVT and GI prophylaxis. Further recommendations as per clinical course of the patient DVT prophylaxis: No anticoagulation in view of bleeding GI Prophylaxis: Pepcid Prognosis is guarded
[2020-09-21 20:52] LABS: Glucose,Whole Blood 184 mg/dL (75-99)
[2020-09-21] MEDS: FAMOTIDINE 20 MG/2 ML VIAL IV SCH (20:56)
[2020-09-22] LABS: Glucose,Whole Blood 146 mg/dL (75-99)
[2020-09-22] MEDS ORDERED: SODIUM CHLORIDE 0.9% 1,000 ML IV ONE (00:20)
[2020-09-22] MEDS: INSULIN ASPART (NovoLOG) 100 UNIT/ML VIAL SQ SCH ×7 (00:43→23:59)
[2020-09-22] MEDS: methylPREDNISolone SOD SUCCI 125 MG/2 ML VIAL IV SCH ×4 (00:44→18:21)
[2020-09-22 03:50] LABS: Basophils % (A) 0 %; Eosinophils # (A) 0.1 k/uL (0-0.7); Eosinophils % (A) 1 %; HCT 37.5 % (34.0-46.0); HGB 11.7 gm/dL (11.4-16.0); Hypochromasia Slight; Lymphocytes # (A) 0.8 k/uL (1.0-4.8); Lymphocytes % (A) 9 %; MCH 33.8 pg (25.0-35.0); MCHC 31.2 g/dL (31.0-37.0); MCV 108.3 fL (80.0-100.0); Macrocytosis Moderate; Mean Platelet Volume 8.6; Monocytes # (A) 0.3 k/uL (0-1.0); Monocytes % (A) 3 %; Neutrophils # (A) 7.8 k/uL (1.3-7.7); Neutrophils % (A) 86 %; Platelet Count 152 k/uL (150-450); RBC 3.46 m/uL (3.80-5.40); RDW 12.8 % (11.5-15.5)
[2020-09-22 03:55] LABS: Albumin 2.9 g/dL (3.5-5.0); Calcium 8.8 mg/dL (8.4-10.2); Total Bilirubin 0.6 mg/dL (0.2-1.3); Total Protein 5.7 g/dL (6.3-8.2)
[2020-09-22 05:19] LABS: ABG Base Excess -5.7 mmol/L; ABG HCO3 20 mmol/L (21-25); ABG Oxygen Saturation 99.3 % (94-97); ABG PCO2 33 mmHg (35-45); ABG PH 7.38 (7.35-7.45); ABG PO2 104 mmHg (83-108); ABG TCO2 21 mmol/L (19-24); Allen Test Performed? Yes
[2020-09-22] MEDS: SODIUM CHLORIDE 0.9% 1,000 ML IV SCH ×2 (05:20→18:22)
[2020-09-22] MEDS: LACTATED RINGERS 1,000 ML IV SCH (06:35)
--- NOTE | 2020-09-22 06:43 | P.PN ---
Subjective Progress Note Date: 09/22/20 On today's evaluation of 09/22/2020 the patient is hemodynamically stable and she is calm and comfortable. Overnight, she was kept on a mechanical ventilator. This morning, she has a tidal volume of 450 with a rate of 24 and FiO2 of 50% with a PEEP of 5. The blood gases from this morning shows adequate oxygenation and ventilation. The patient'sShowed a pH of 7.38 with a pCO2 of 33 and pO2 of 104. Chest x-ray shows some atelectasis/infiltration of the left lung base. There is no evidence of any pneumothorax. A tube is in a good location. Overnight, the patient had some lower urine output. She was given a bolus of 1 L of IV fluid and currently she is on normal saline at rate of 75 mL an hour. She is producing adequate amount of urine output. She is on propofol running at 35 g. She is responsive upon stimulation. She is following commands. Hemoglobin dropped down to 11.7. No other atypical massive drop in hemoglobin. The plan is to do a second look via bronchoscopy and subsequently proceed with some weaning parameters and possible extubation today. Objective - Vital Signs Vital signs: Vital Signs Temp 98.4 F 09/22/20 04:00 Pulse 68 09/22/20 06:00 Resp 24 09/22/20 06:00 BP 128/67 09/22/20 06:00 Pulse Ox 100 09/22/20 06:00 Intake & Output 09/21/20 09/21/20 09/22/20 06:59 18:59 06:59 Intake Total 1380 1986.88 Output Total 940 281 Balance 440 1705.88 Weight 79 kg 84.2 kg Intake: IV 1380 1900 Sodium Chloride 0.9% 1, 225 900 000 ml @ 75 mls/hr IV . [id number] [facility] Rx#:[id number] Sodium Chloride 0.9% 1, 1000 000 ml @ 999 mls/hr IV . Q1H1M [facility] Rx#:[id number] Intake, IV Titration 86.88 Amount propofoL 1,000 mg In 86.88 Empty Bag 1 bag @ Titrate IV .Q0M [facility] Rx#: [id number] Output: Urine 940 281 Other: Voiding Method Indwelling Catheter Indwelling Catheter - Exam Gen. appearance she is calm comfortable notiin acute respiratory distress and she is intubated on a mechanical ventilator. Well sedated. Symptoms with the mechanical ventilator. Head exam was generally normal. There was no scleral icterus or corneal arcus. Mucous membranes were moist. Neck was supple and without jugular venous distension, thyromegaly, or carotid bruits. Carotids were easily palpable bilaterally. There was no adenopathy. Lungs were clear to auscultation and percussion, and with normal diaphragmatic excursion. No wheezes or rales were noted. Cardiac exam revealed the PMI to be normally situated and sized. The rhythm was regular and no extrasystoles were noted during several minutes of auscultation. The first and second heart sounds were normal and physiologic splitting of the second heart sound was noted. There were no murmurs, rubs, clicks, or gallops. Abdominal exam revealed normal bowel sounds. The abdomen was soft, non-tender, and without masses, organomegaly, or appreciable enlargement of the abdominal aorta. Examination of the extremities revealed easily palpable radial, femoral and pedal pulses. There was no cyanosis, clubbing or edema. Examination of the skin revealed no evidence of significant rashes, suspicious appearing nevi or other concerning lesions. - Labs CBC & Chem 7: 09/22/20 03:26 09/22/20 03:26 Labs: Abnormal Lab Results - Last 24 Hours (Table) 09/21/20 09/21/20 09/21/20 Range/Units 14:27 14:27 15:05 RBC 3.68 L (3.80-5.40) m/uL MCV 107.5 H (80.0-100.0) fL Neutrophils # (1.3-7.7) k/uL Lymphocytes # (1.0-4.8) k/uL APTT (22.0-30.0) sec ABG pH 7.17 L* (7.35-7.45) ABG pCO2 62 H (35-45) mmHg ABG pO2 187 H (83-108) mmHg ABG HCO3 (21-25) mmol/L ABG Total CO2 25 H (19-24) mmol/L ABG O2 Saturation 99.8 H (94-97) % Chloride 112 H (98-107) mmol/L Carbon Dioxide (22-30) mmol/L BUN 19 H (7-17) mg/dL Creatinine 1.33 H (0.52-1.04) mg/dL Glucose 196 H (74-99) mg/dL POC Glucose (mg/dL) (75-99) mg/dL Total Protein 6.2 L (6.3-8.2) g/dL Albumin 3.3 L (3.5-5.0) g/dL 09/21/20 09/21/20 09/21/20 Range/Units 16:13 16:32 16:38 RBC (3.80-5.40) m/uL MCV (80.0-100.0) fL Neutrophils # (1.3-7.7) k/uL Lymphocytes # (1.0-4.8) k/uL APTT 20.0 L (22.0-30.0) sec ABG pH 7.27 L (7.35-7.45) ABG pCO2 (35-45) mmHg ABG pO2 (83-108) mmHg ABG HCO3 20 L (21-25) mmol/L ABG Total CO2 (19-24) mmol/L ABG O2 Saturation (94-97) % Chloride (98-107) mmol/L Carbon Dioxide (22-30) mmol/L BUN (7-17) mg/dL Creatinine (0.52-1.04) mg/dL Glucose (74-99) mg/dL POC Glucose (mg/dL) 226 H (75-99) mg/dL Total Protein (6.3-8.2) g/dL Albumin (3.5-5.0) g/dL 09/21/20 09/21/20 09/21/20 Range/Units 17:33 20:49 23:58 RBC (3.80-5.40) m/uL MCV (80.0-100.0) fL Neutrophils # (1.3-7.7) k/uL Lymphocytes # (1.0-4.8) k/uL APTT (22.0-30.0) sec ABG pH (7.35-7.45) ABG pCO2 (35-45) mmHg ABG pO2 (83-108) mmHg ABG HCO3 (21-25) mmol/L ABG Total CO2 (19-24) mmol/L ABG O2 Saturation (94-97) % Chloride (98-107) mmol/L Carbon Dioxide (22-30) mmol/L BUN (7-17) mg/dL Creatinine (0.52-1.04) mg/dL Glucose (74-99) mg/dL POC Glucose (mg/dL) 200 H 184 H 146 H (75-99) mg/dL Total Protein (6.3-8.2) g/dL Albumin (3.5-5.0) g/dL 09/22/20 09/22/20 09/22/20 Range/Units 03:26 03:26 05:07 RBC 3.46 L (3.80-5.40) m/uL MCV 108.3 H (80.0-100.0) fL Neutrophils # 7.8 H (1.3-7.7) k/uL Lymphocytes # 0.8 L (1.0-4.8) k/uL APTT (22.0-30.0) sec ABG pH (7.35-7.45) ABG pCO2 33 L (35-45) mmHg ABG pO2 (83-108) mmHg ABG HCO3 20 L (21-25) mmol/L ABG Total CO2 (19-24) mmol/L ABG O2 Saturation 99.3 H (94-97) % Chloride 114 H (98-107) mmol/L Carbon Dioxide 18 L (22-30) mmol/L BUN 22 H (7-17) mg/dL Creatinine 1.55 H (0.52-1.04) mg/dL Glucose 146 H (74-99) mg/dL POC Glucose (mg/dL) (75-99) mg/dL Total Protein 5.7 L (6.3-8.2) g/dL Albumin 2.9 L (3.5-5.0) g/dL Assessment and Plan Plan: 1 bilateral pulmonary infiltrates with extensive consolidation of the left lower lobe with areas of patchy groundglass pulmonary infiltrates bilaterally. The patient is postnavigational bronchoscopy. she is postop day #1. 2 massive endobronchial bleeding. Has bronchial biopsy of the left lower lobe. Bleeding is currently inactive in stable and the patient will be kept sedated on a mechanical ventilator for the next 24 hours for further monitoring.on today's evaluation of 09/22/2020, the patient has had no further endobronchial bleeding. Blood gas shows adequate oxygenation. The patient has a stable chest x-ray. 3 acute hypoxic respiratory failure secondary to above, improved 4 previous history of pulmonary embolism, the patient was taken anticoagulation with Eliquis on outpatient basis. At the anticoagulation discontinued prior to this procedure. In addition the patient has a history of DVT of the right lower extremity 5 hypertension 6 hyperlipidemia 7 chronic kidney disease 8 the patient is a [employer] Plan Continue ventilator support Keep the patient sedated I'm going to do another bronchoscopy for airway inspection on evacuation of any residual clots Chest x-ray and blood gases was noted. Findings are stable. Post bronchoscopy, we're going to give the patient a sedation holiday and check her weaning parameters and proceed with weaning trials. Hemoglobin stable She is on IV Solu-Medrol. I'm going to given a course of Levaquin, as an empiric antibiotic coverage We'll continue to follow. Further recommendations to follow based on clinical progress. This evaluation was done in 30 minutes. I discussed the case with the daughter over the phone. Time with Patient: Greater than 30
--- NOTE | 2020-09-22 08:04 | P.PCN ---
Date of Procedure: 09/22/20 Preoperative Diagnosis: left lower lobe consolidation, endobronchial bleeding Postoperative Diagnosis: minimal amount of residual clots in the left lower lobe, bronchial lavage of the left lower lobe was done Procedure(s) Performed: flexible bronchoscopy, evacuation of blood clots, bronchioloalveolar lavage of the left lower lobe Anesthesia: MAC Surgeon: Nakia Somers Pathology: other Condition: critical Disposition: ICU Operative Findings: this procedure was done to remove any residual blood clots. The patient was kept intubated on a mechanical ventilator overnight. This morning she wasn't an 40% FiO2. She was, comfortable sedated with propofol. She was placed on 100% FiO2. The flexible bronchoscope was easily passed down the ET tube and antidepressant lower trachea. Minimal residual clots were seen in the time that was suctioned out easily without any major difficulties. Following that an airway inspection was done. There was some residual clots in the left lower lobe that was suctioned out after irrigation. Airway was patent including the left mainstem bronchus, right mainstem bronchus, left upper lobe bronchus left lower lobe bronchus and right upper lobe bronchus regular lobe bronchus and right lower lobe bronchus. I performed a bronchioloalveolar lavage of the left lower lobe. A total of 60 mL of fluid was infused and 18 cc was suctioned back. the aspirate was slightly bloody because of the residualflaccid were present in the airway. Nevertheless, there was no evidence of any acute or active bleeding at this point in time. No complications. Bronchoscope was removed and the procedure was terminated. The patient seems to be ready for further weaning.
[2020-09-22] MEDS ORDERED: LEVOFLOXACIN 750MG-D5W PMX 750 MG in DEXTROSE/WATER 1 150ML.BAG IVPB SCH (09:00)
[2020-09-22] MEDS: ALBUTEROL NEBULIZED 2.5 MG/3 ML INHALATION SCH ×4 (09:21→21:51)
--- NOTE | 2020-09-22 09:21 | XR ---
EXAMINATION TYPE: XR chest 1V DATE OF EXAM: 09/22/2020 COMPARISON: Prior chest 08/01/2020 HISTORY: Ventilator dependent respiratory failure, abnormal chest x-ray TECHNIQUE: Single frontal view of the chest is obtained. FINDINGS: Patchy bilateral density is again noted. The left hemidiaphragm is obscured. Endotracheal tube is overlying the tracheal air column. There is no evident pneumothorax. Retrocardiac density per sists. Aorta is dense. Heart is stable. IMPRESSION: Correlate for possible multifocal pneumonia versus metastatic disease. Possible left ple ural effusion.
[2020-09-22 09:44] LABS: Glucose,Whole Blood 150 mg/dL (75-99)
[2020-09-22] MEDS: FAMOTIDINE 20 MG/2 ML VIAL IV SCH (10:14)
[2020-09-22 11:59] LABS: Glucose,Whole Blood 175 mg/dL (75-99)
[2020-09-22 13:41] LABS: Appearance,BF Bloody; Nucleated Cells, Body Fluid 500 /uL; RBC, Body Fluid 90900 /uL
[2020-09-22 13:43] LABS: Mononuclear WBC,Body Fluid 2 %; Polynuclear WBC,Body Fluid 97 %; Total Cells Counted,Body Fluid 100
[2020-09-22 15:58] LABS: Glucose,Whole Blood 110 mg/dL (75-99)
[2020-09-22 20:02] LABS: Glucose,Whole Blood 132 mg/dL (75-99)
[2020-09-22] MEDS ORDERED: guaiFENesin SYRUP 100MG/5ML 200 MG/10 ML CUP PO SCH (21:00)
--- NOTE | 2020-09-22 22:03 | P.PN ---
Subjective This is a pleasant 89 years old female with past medical history of hypertension, hyperlipidemia, DVT/pulmonary embolism was on Eliquis 10 mg twice daily. Patient originally developed increased coughing with congestion and chest x-ray showing extensive left lower lobe pneumonia. Patient does not improve with antibiotics with Levaquin, CAT scan of the chest showed resistant organizing consolidation with surrounding articulation and groundglass opacity of the left lung base laterally. Multifocal areas of vertical or consolidation throughout the lungs is redemonstrated bilaterally. Patient underwent bronchoscopy today for bronchoalveolar lavage and obtaining transbronchial biopsy of the left lower lobe. However after the biopsy patient had massive endotracheal bleeding. Eventually patient kept intubated and transferred to the ICU for further management. Looks like the bleeding stopped and hemoglobin is noted to be monitored. 09/22/2020 Patient underwent flexible bronchoscopy with evacuation of blood clots and BAL of the left lower lobe today. Multiple cultures are pending Followed by sedation holiday and extubation, post extubation patient feeling generally weak but she follows commands with no specific complaint. She is saturating 94% on follow-up on 5 L/m oxygen Antibiotic was admitted to the form of Levaquin Creatinine at baseline of 1.4 if she has chronic kidney disease. CBC is unremarkable Review of systems CONSTITUTIONAL: No fever, no malaise, no fatigue. HEENT: No recent visual problems or hearing problems. Denied any sore throat. CARDIOVASCULAR: No orthopnea, PND, no palpitations, no syncope. PULMONARY: No shortness of breath, no cough, no hemoptysis. GASTROINTESTINAL: No diarrhea, no nausea, no vomiting, no abdominal pain. Normoactive bowel sounds. NEUROLOGICAL: No headaches, no weakness, no numbness. HEMATOLOGICAL: Denies any bleeding or petechiae. Active Medications Generic Name Dose Route Start Last Admin Trade Name Freq PRN Reason Stop Dose Admin Albuterol Sulfate 2.5 mg 09/21/20 20:00 09/22/20 21:51 Albuterol Nebulized 2.5 Mg/3 Ml INHALATION Not Given RT-QID GINNY Famotidine 20 mg 09/23/20 09:00 Famotidine 20 Mg/2 Ml Vial IV DAILY GINNY Guaifenesin 200 mg 09/22/20 21:00 Guaifenesin Syrup 100mg/5ml 200 Mg/10 Ml Cup PO Q4H [facility] Sodium Chloride 1,000 mls @ 75 mls/hr 09/21/20 06:00 09/22/20 18:22 Saline 0.9% IV 75 mls/hr .[id number] GINNY Administration Levofloxacin 750 mg/ IV 150 mls @ 100 mls/hr 09/22/20 09:00 09/22/20 10:14 Solution IVPB 100 mls/hr Q48H GINNY Administration Insulin Aspart 0 unit 09/21/20 16:30 09/22/20 20:09 Insulin Aspart (Novolog) 100 Unit/Ml Vial SQ 1 unit Q4HR GINNY Administration Protocol Methylprednisolone Sodium Succinate 60 mg 09/21/20 18:00 09/22/20 18:21 Methylprednisolone Sod Succi 125 Mg/2 Ml Vial IV 60 mg Q6HR GINNY Administration Objective - Vital Signs Vital signs: Vital Signs Temp 97.9 F 09/22/20 20:00 Pulse 104 H 09/22/20 20:00 Resp 17 09/22/20 20:00 BP 125/71 09/22/20 20:00 Pulse Ox 94 L 09/22/20 20:00 Intake & Output 09/22/20 09/22/20 09/23/20 06:59 18:59 06:59 Intake Total 1986.88 1330.527 150 Output Total 281 1145 125 Balance 1705.88 185.527 25 Weight 84.2 kg Intake: IV 1900 1050 150 Levofloxacin 750Mg-D5w 150 Pmx 750 mg In Dextrose/ Water 1 150ml.bag @ 100 mls/hr IVPB Q48H [facility] Rx#: [id number] Sodium Chloride 0.9% 1, 900 900 150 000 ml @ 75 mls/hr IV . [id number] [facility] Rx#:[id number] Sodium Chloride 0.9% 1, 1000 000 ml @ 999 mls/hr IV . Q1H1M [facility] Rx#:[id number] Intake, IV Titration 86.88 40.527 Amount propofoL 1,000 mg In 86.88 40.527 Empty Bag 1 bag @ Titrate IV .Q0M [facility] Rx#: [id number] Oral 240 Output: Urine 281 1145 125 Other: Voiding Method Indwelling Catheter Indwelling Catheter Indwelling Catheter - Exam -GENERAL: The patient is alert and oriented x3, not in any acute distress. She feels generally weak but she follows commands nourished. HEENT: Pupils are round and equally reacting to light. EOMI. No scleral icterus. No conjunctival pallor. Normocephalic, atraumatic. No pharyngeal erythema. No thyromegaly. CARDIOVASCULAR: S1 and S2 present. No murmurs, rubs, or gallops. PULMONARY: Chest is clear to auscultation, no wheezing or crackles. ABDOMEN: Soft, nontender, nondistended, normoactive bowel sounds. No palpable organomegaly. Guadarrama catheter is in place MUSCULOSKELETAL: No joint swelling or deformity. EXTREMITIES: No cyanosis, clubbing, or pedal edema. NEUROLOGICAL: Gross neurological examination did not reveal any focal deficits. SKIN: No rashes. no petechiae. - Labs CBC & Chem 7: 09/22/20 03:26 09/22/20 03:26 Labs: Abnormal Lab Results - Last 24 Hours (Table) 09/21/20 09/22/20 09/22/20 Range/Units 23:58 03:26 03:26 RBC 3.46 L (3.80-5.40) m/uL MCV 108.3 H (80.0-100.0) fL Neutrophils # 7.8 H (1.3-7.7) k/uL Lymphocytes # 0.8 L (1.0-4.8) k/uL ABG pCO2 (35-45) mmHg ABG HCO3 (21-25) mmol/L ABG O2 Saturation (94-97) % Chloride 114 H (98-107) mmol/L Carbon Dioxide 18 L (22-30) mmol/L BUN 22 H (7-17) mg/dL Creatinine 1.55 H (0.52-1.04) mg/dL Glucose 146 H (74-99) mg/dL POC Glucose (mg/dL) 146 H (75-99) mg/dL Total Protein 5.7 L (6.3-8.2) g/dL Albumin 2.9 L (3.5-5.0) g/dL 09/22/20 09/22/20 09/22/20 Range/Units 05:07 09:41 11:57 RBC (3.80-5.40) m/uL MCV (80.0-100.0) fL Neutrophils # (1.3-7.7) k/uL Lymphocytes # (1.0-4.8) k/uL ABG pCO2 33 L (35-45) mmHg ABG HCO3 20 L (21-25) mmol/L ABG O2 Saturation 99.3 H (94-97) % Chloride (98-107) mmol/L Carbon Dioxide (22-30) mmol/L BUN (7-17) mg/dL Creatinine (0.52-1.04) mg/dL Glucose (74-99) mg/dL POC Glucose (mg/dL) 150 H 175 H (75-99) mg/dL Total Protein (6.3-8.2) g/dL Albumin (3.5-5.0) g/dL 09/22/20 09/22/20 Range/Units 15:57 20:01 RBC (3.80-5.40) m/uL MCV (80.0-100.0) fL Neutrophils # (1.3-7.7) k/uL Lymphocytes # (1.0-4.8) k/uL ABG pCO2 (35-45) mmHg ABG HCO3 (21-25) mmol/L ABG O2 Saturation (94-97) % Chloride (98-107) mmol/L Carbon Dioxide (22-30) mmol/L BUN (7-17) mg/dL Creatinine (0.52-1.04) mg/dL Glucose (74-99) mg/dL POC Glucose (mg/dL) 110 H 132 H (75-99) mg/dL Total Protein (6.3-8.2) g/dL Albumin (3.5-5.0) g/dL Microbiology - Last 24 Hours (Table) 09/22/20 08:00 Fungal Culture - Preliminary Bronchial Washings - Left 09/22/20 08:00 Bronchial Washings Culture - Preliminary Bronchial Washings - Left 09/22/20 08:00 Acid Fast Bacilli Culture - Preliminary Bronchial Washings - Left Assessment and Plan Assessment: Bilateral pneumonia male in the left lower lobe with patchy Labs pulmonary i nfiltrate and organizing consolidation. Status post left bronchial biopsy, located by postprocedure bleeding Acute hypoxic respiratory failure, was on mechanical ventilation, status post extubation Hypertension. Hyperlipidemia Chronic kidney disease Patient is [employer] History of DVT/PE Plan: This is an 89 years old female who presents with respiratory failure, and left bronchial biopsy complicated by bleeding. Continue with oxygen therapy status post extubation. Follow-up recommendation by pulmonary/critical care team. Continue with Levaquin. Follow-up culture results Labs and medication were reviewed.. Continue same treatment. Continue with symptomatic treatment. Resume home medication. Monitor lytes and vitals. DVT and GI prophylaxis. Further recommendations as per clinical course of the patient DVT prophylaxis: No anticoagulation in view of bleeding GI Prophylaxis: Pepcid Prognosis is guarded
[2020-09-22 23:52] LABS: Glucose,Whole Blood 123 mg/dL (75-99)
[2020-09-23] MEDS: guaiFENesin SYRUP 100MG/5ML 200 MG/10 ML CUP PO SCH ×5 (00:06→23:02)
[2020-09-23] MEDS: methylPREDNISolone SOD SUCCI 125 MG/2 ML VIAL IV SCH ×2 (00:06→05:45)
[2020-09-23 04:06] LABS: HGB 10.8 gm/dL (11.4-16.0); MCH 34.4 pg (25.0-35.0); MCHC 32.7 g/dL (31.0-37.0); MCV 105.3 fL (80.0-100.0); Macrocytosis Slight; Mean Platelet Volume 7.9; Platelet Count 149 k/uL (150-450); RBC 3.13 m/uL (3.80-5.40); RDW 12.5 % (11.5-15.5); WBC 15.6 k/uL (3.8-10.6)
[2020-09-23 04:14] LABS: Glucose,Whole Blood 133 mg/dL (75-99)
[2020-09-23 04:21] LABS: Calcium 9.3 mg/dL (8.4-10.2); Potassium 4.5 mmol/L (3.5-5.1)
[2020-09-23] MEDS: INSULIN ASPART (NovoLOG) 100 UNIT/ML VIAL SQ SCH ×4 (04:32→17:07)
[2020-09-23] MEDS: ALBUTEROL NEBULIZED 2.5 MG/3 ML INHALATION SCH ×4 (08:08→19:38)
--- NOTE | 2020-09-23 08:15 | P.PN ---
Subjective Progress Note Date: 09/23/20 On today's evaluation of 09/22/2020 the patient is hemodynamically stable and she is calm and comfortable. Overnight, she was kept on a mechanical ventilator. This morning, she has a tidal volume of 450 with a rate of 24 and FiO2 of 50% with a PEEP of 5. The blood gases from this morning shows adequate oxygenation and ventilation. The patient'sShowed a pH of 7.38 with a pCO2 of 33 and pO2 of 104. Chest x-ray shows some atelectasis/infiltration of the left lung base. There is no evidence of any pneumothorax. A tube is in a good location. Overnight, the patient had some lower urine output. She was given a bolus of 1 L of IV fluid and currently she is on normal saline at rate of 75 mL an hour. She is producing adequate amount of urine output. She is on propofol running at 35 g. She is responsive upon stimulation. She is following commands. Hemoglobin dropped down to 11.7. No other atypical massive drop in hemoglobin. The plan is to do a second look via bronchoscopy and subsequently proceed with some weaning parameters and possible extubation today. The patient is seen today 09/23/2020 in [facility]- in the intensive care unit. She is currently maintaining good O2 saturations in the 90s on 6 L/m per nasal cannula. She is awake and alert in no acute distress. She denies any worsening shortness of breath. Continues with a loose nonproductive cough. No hemoptysis. No fever, chills or night sweats. She is swallowing well. Tolerating her diet. Chest x-ray continues to show some left lower lobe atelectasis/infiltrate. She remains on Levaquin.White count 15.6. Hemoglobin 10.8. Platelets 149. Sodium 140. Potassium 4.5. Bicarb 21. Creatinine 1.46. Bronchial wash results are still pending. Objective - Vital Signs Vital signs: Vital Signs Temp 97.6 F 09/23/20 02:00 Pulse 101 H 09/23/20 02:00 Resp 20 09/23/20 06:00 BP 148/78 09/23/20 02:00 Pulse Ox 93 L 09/23/20 06:00 Intake & Output 09/22/20 09/23/20 09/23/20 18:59 06:59 18:59 Intake Total 1330.527 825 Output Total 1145 1015 Balance 185.527 -190 Weight 86.3 kg Intake: IV 1050 675 Levofloxacin 750Mg-D5w 150 Pmx 750 mg In Dextrose/ Water 1 150ml.bag @ 100 mls/hr IVPB Q48H [facility] Rx#: [id number] Sodium Chloride 0.9% 1, 900 675 000 ml @ 75 mls/hr IV . [id number] [facility] Rx#:[id number] Intake, IV Titration 40.527 Amount propofoL 1,000 mg In 40.527 Empty Bag 1 bag @ Titrate IV .Q0M [facility] Rx#: [id number] Oral 240 150 Output: Urine 1145 1015 Other: Voiding Method Indwelling Catheter Indwelling Catheter - Exam GENERAL EXAM: Alert, very pleasant 89-year-old female patient, currently on 6 L nasal cannula, comfortable in no apparent distress. HEAD: Normocephalic. EYES: Normal reaction of pupils, equal size. NOSE: Clear with pink turbinates. THROAT: No erythema or exudates. NECK: No masses, no JVD. CHEST: No chest wall deformity. LUNGS: Equal air entry with crackles in the bilateral bases left greater than right, diminished. CVS: S1 and S2 normal with no audible murmur, regular rhythm. ABDOMEN: No hepatosplenomegaly, normal bowel sounds, no guarding or rigidity. SPINE: No scoliosis or deformity SKIN: No rashes CENTRAL NERVOUS SYSTEM: No focal deficits, tone is normal in all 4 extremities. EXTREMITIES: There is no peripheral edema. No clubbing, no cyanosis. Peripheral pulses are intact. - Labs CBC & Chem 7: 09/23/20 03:34 09/23/20 03:34 Labs: Abnormal Lab Results - Last 24 Hours (Table) 09/22/20 09/22/20 09/22/20 Range/Units 09:41 11:57 15:57 WBC (3.8-10.6) k/uL RBC (3.80-5.40) m/uL Hgb (11.4-16.0) gm/dL Hct (34.0-46.0) % MCV (80.0-100.0) fL Plt Count (150-450) k/uL Chloride (98-107) mmol/L Carbon Dioxide (22-30) mmol/L BUN (7-17) mg/dL Creatinine (0.52-1.04) mg/dL Glucose (74-99) mg/dL POC Glucose (mg/dL) 150 H 175 H 110 H (75-99) mg/dL 09/22/20 09/22/20 09/23/20 Range/Units 20:01 23:50 03:34 WBC 15.6 H (3.8-10.6) k/uL RBC 3.13 L (3.80-5.40) m/uL Hgb 10.8 L (11.4-16.0) gm/dL Hct 33.0 L (34.0-46.0) % MCV 105.3 H (80.0-100.0) fL Plt Count 149 L (150-450) k/uL Chloride (98-107) mmol/L Carbon Dioxide (22-30) mmol/L BUN (7-17) mg/dL Creatinine (0.52-1.04) mg/dL Glucose (74-99) mg/dL POC Glucose (mg/dL) 132 H 123 H (75-99) mg/dL 09/23/20 09/23/20 Range/Units 03:34 04:13 WBC (3.8-10.6) k/uL RBC (3.80-5.40) m/uL Hgb (11.4-16.0) gm/dL Hct (34.0-46.0) % MCV (80.0-100.0) fL Plt Count (150-450) k/uL Chloride 115 H (98-107) mmol/L Carbon Dioxide 21 L (22-30) mmol/L BUN 21 H (7-17) mg/dL Creatinine 1.46 H (0.52-1.04) mg/dL Glucose 137 H (74-99) mg/dL POC Glucose (mg/dL) 133 H (75-99) mg/dL Microbiology - Last 24 Hours (Table) 09/22/20 08:00 Acid Fast Bacilli Smear - Final Bronchial Washings - Left Acid Fast Bacilli Culture - Preliminary 09/22/20 08:00 Gram Stain - Preliminary Bronchial Washings - Left Bronchial Washings Culture - Preliminary 09/22/20 08:00 Fungal Culture - Preliminary Bronchial Washings - Left Assessment and Plan Assessment: 1 Bilateral pulmonary infiltrates with extensive consolidation of left lower lobe with areas of patchy groundglass pulmonary infiltrates bilaterally. Patient is status post navigational bronchoscopy with biopsies of the left lower lobe. Postoperative day #2. She did undergo follow-up bronchoscopy in the ICU was still on the mechanical ventilator yesterday. Cultures and cytology are pending 2 Massive endobronchial bleeding. Has bronchial biopsy of the left lower lobe. Bleeding is currently inactive and stable. No hemoptysis. She is on 6 L nasal cannula. Chest x-ray is stable. 3 Acute hypoxic respiratory failure secondary to above, improved 4 Previous history of pulmonary embolism the patient was taken anticoagulation with Eliquis. 5 Hypertension 6 Hyperlipidemia 7 Chronic kidney disease The Patient is a [employer]. Plan: The patient was seen and evaluated by Dr. oSmers Chest x-ray and labs reviewed Titrate down the FiO2 as tolerated Continue his current treatment plan. I'll increase her activity as tolerated We will continue to follow and make further recommendations based on her cli nical status I, the cosigning physician, performed a history & physical examination of the patient. Lungs sounds with bibasilar crackles left greater than right, diminished Maintaining good O2 saturations in the 90s on 6 L/m per nasal cannula. I discussed the assessment and plan of care with my nurse practitioner, Oneyda Mathews. I attest to the above note as dictated by her.
[2020-09-23] MEDS ORDERED: LEVOFLOXACIN 750 MG TAB PO SCH (09:00)
[2020-09-23] MEDS ORDERED: FAMOTIDINE 20 MG/2 ML VIAL IV SCH (09:00)
[2020-09-23] MEDS: predniSONE 20 MG TAB PO SCH (09:07)
[2020-09-23] MEDS: FAMOTIDINE 20 MG TAB PO SCH (09:07)
[2020-09-23] MEDS ORDERED: ACETAMINOPHEN TAB 325 MG TAB PO PRN (09:08)
[2020-09-23] MEDS: SODIUM CHLORIDE 0.9% 1,000 ML IV SCH ×2 (09:14→20:21)
[2020-09-23 09:15] LABS: Glucose,Whole Blood 130 mg/dL (75-99)
--- NOTE | 2020-09-23 11:25 | XR ---
EXAMINATION TYPE: XR chest 1V portable DATE OF EXAM: 09/23/2020 COMPARISON: 09/22/2020 INDICATION: Wheezing, post bronchoscopy TECHNIQUE: Single frontal view of the chest is obtained. FINDINGS: The heart size is upper limits of normal. The pulmonary vasculature is normal. Left lower lobe infiltrate is present. Milder scattered infiltrates may be within the right lung. Fin dings appear worsened over the interval. No pneumothorax is evident. IMPRESSION: 1. Worsening bilateral lung infiltrates worse on the left. 2. No pneumothorax post bronchoscopy
[2020-09-23 12:03] LABS: Glucose,Whole Blood 123 mg/dL (75-99)
--- NOTE | 2020-09-24 00:03 | P.PN ---
Subjective This is a pleasant 89 years old female with past medical history of hypertension, hyperlipidemia, DVT/pulmonary embolism was on Eliquis 10 mg twice daily. Patient originally developed increased coughing with congestion and chest x-ray showing extensive left lower lobe pneumonia. Patient does not improve with antibiotics with Levaquin, CAT scan of the chest showed resistant organizing consolidation with surrounding articulation and groundglass opacity of the left lung base laterally. Multifocal areas of vertical or consolidation throughout the lungs is redemonstrated bilaterally. Patient underwent bronchoscopy today for bronchoalveolar lavage and obtaining transbronchial biopsy of the left lower lobe. However after the biopsy patient had massive endotracheal bleeding. Eventually patient kept intubated and transferred to the ICU for further management. Looks like the bleeding stopped and hemoglobin is noted to be monitored. 09/22/2020 Patient underwent flexible bronchoscopy with evacuation of blood clots and BAL of the left lower lobe today. Multiple cultures are pending Followed by sedation holiday and extubation, post extubation patient feeling generally weak but she follows commands with no specific complaint. She is saturating 94% on follow-up on 5 L/m oxygen Antibiotic was admitted to the form of Levaquin Creatinine at baseline of 1.4 if she has chronic kidney disease. CBC is unremarkable 09/23/2020 Today patient is more awake and alert, she follow commands, she's not in distress, Vitas looks stable. She is saturating 93-94% on 3 L oxygen via nasal cannula Patient denies specific complaint and she tolerates diet Her medication is wished to prednisone 40 mg daily and Levaquin swished orally. Continue with gentle hydration. She has leukocytosis but also she is on steroids. Creatinine is stable at 1.4. Culture are still pending Patient can be transferred out of the ICU to the general medical floor today Review of systems CONSTITUTIONAL: No fever, no malaise, no fatigue. HEENT: No recent visual problems or hearing problems. Denied any sore throat. CARDIOVASCULAR: No orthopnea, PND, no palpitations, no syncope. PULMONARY: No shortness of breath, no cough, no hemoptysis. GASTROINTESTINAL: No diarrhea, no nausea, no vomiting, no abdominal pain. Normoactive bowel sounds. NEUROLOGICAL: No headaches, no weakness, no numbness. HEMATOLOGICAL: Denies any bleeding or petechiae. Active Medications Generic Name Dose Route Start Last Admin Trade Name Freq PRN Reason Stop Dose Admin Acetaminophen 650 mg 09/23/20 09:08 Acetaminophen Tab 325 Mg Tab PO Q6HR PRN Fever and/ or Pain Albuterol Sulfate 2.5 mg 09/21/20 20:00 09/23/20 19:38 Albuterol Nebulized 2.5 Mg/3 Ml INHALATION Not Given RT-QID [facility] Famotidine 20 mg 09/23/20 09:00 09/23/20 09:07 Famotidine 20 Mg Tab PO 20 mg DAILY [facility] Administration Guaifenesin 200 mg 09/23/20 00:00 09/23/20 23:02 Guaifenesin Syrup 100mg/5ml 200 Mg/10 Ml Cup PO 200 mg Q6HR [facility] Administration Sodium Chloride 1,000 mls @ 75 mls/hr 09/21/20 06:00 09/23/20 20:21 Saline 0.9% IV Not Given .[id number] [facility] Levofloxacin 750 mg 09/25/20 09:00 Levofloxacin 750 Mg Tab PO Q48H [facility] Prednisone 40 mg 09/23/20 09:00 09/23/20 09:07 Prednisone 20 Mg Tab PO 40 mg DAILY [facility] Administration Objective - Vital Signs Vital signs: Vital Signs Temp 97.7 F 09/23/20 14:00 Pulse 98 09/23/20 14:00 Resp 26 H 09/23/20 14:00 BP 126/69 09/23/20 14:00 Pulse Ox 98 09/23/20 14:00 Intake & Output 09/22/20 09/23/20 09/23/20 18:59 06:59 18:59 Intake Total 1330.527 825 Output Total 1145 1015 Balance 185.527 -190 Weight 86.3 kg Intake: IV 1050 675 Levofloxacin 750Mg-D5w 150 Pmx 750 mg In Dextrose/ Water 1 150ml.bag @ 100 mls/hr IVPB Q48H [facility] Rx#: [id number] Sodium Chloride 0.9% 1, 900 675 000 ml @ 75 mls/hr IV . [id number] [facility] Rx#:[id number] Intake, IV Titration 40.527 Amount propofoL 1,000 mg In 40.527 Empty Bag 1 bag @ Titrate IV .Q0M [facility] Rx#: [id number] Oral 240 150 Output: Urine 1145 1015 Other: Voiding Method Indwelling Catheter Indwelling Catheter Indwelling Catheter - Exam -GENERAL: The patient is alert and oriented x3, not in any acute distress. She feels generally weak but she follows commands nourished. HEENT: Pupils are round and equally reacting to light. EOMI. No scleral icterus. No conjunctival pallor. Normocephalic, atraumatic. No pharyngeal erythema. No thyromegaly. CARDIOVASCULAR: S1 and S2 present. No murmurs, rubs, or gallops. PULMONARY: Chest is clear to auscultation, no wheezing or crackles. ABDOMEN: Soft, nontender, nondistended, normoactive bowel sounds. No palpable organomegaly. Guadarrama catheter is in place MUSCULOSKELETAL: No joint swelling or deformity. EXTREMITIES: No cyanosis, clubbing, or pedal edema. NEUROLOGICAL: Gross neurological examination did not reveal any focal deficits. SKIN: No rashes. no petechiae. - Labs CBC & Chem 7: 09/23/20 03:34 09/23/20 03:34 Labs: Abnormal Lab Results - Last 24 Hours (Table) 09/22/20 09/22/20 09/23/20 Range/Units 20:01 23:50 03:34 WBC 15.6 H (3.8-10.6) k/uL RBC 3.13 L (3.80-5.40) m/uL Hgb 10.8 L (11.4-16.0) gm/dL Hct 33.0 L (34.0-46.0) % MCV 105.3 H (80.0-100.0) fL Plt Count 149 L (150-450) k/uL Chloride (98-107) mmol/L Carbon Dioxide (22-30) mmol/L BUN (7-17) mg/dL Creatinine (0.52-1.04) mg/dL Glucose (74-99) mg/dL POC Glucose (mg/dL) 132 H 123 H (75-99) mg/dL 09/23/20 09/23/20 09/23/20 Range/Units 03:34 04:13 09:13 WBC (3.8-10.6) k/uL RBC (3.80-5.40) m/uL Hgb (11.4-16.0) gm/dL Hct (34.0-46.0) % MCV (80.0-100.0) fL Plt Count (150-450) k/uL Chloride 115 H (98-107) mmol/L Carbon Dioxide 21 L (22-30) mmol/L BUN 21 H (7-17) mg/dL Creatinine 1.46 H (0.52-1.04) mg/dL Glucose 137 H (74-99) mg/dL POC Glucose (mg/dL) 133 H 130 H (75-99) mg/dL 09/23/20 Range/Units 12:02 WBC (3.8-10.6) k/uL RBC (3.80-5.40) m/uL Hgb (11.4-16.0) gm/dL Hct (34.0-46.0) % MCV (80.0-100.0) fL Plt Count (150-450) k/uL Chloride (98-107) mmol/L Carbon Dioxide (22-30) mmol/L BUN (7-17) mg/dL Creatinine (0.52-1.04) mg/dL Glucose (74-99) mg/dL POC Glucose (mg/dL) 123 H (75-99) mg/dL Microbiology - Last 24 Hours (Table) 09/22/20 08:00 Acid Fast Bacilli Smear - Final Bronchial Washings - Left Acid Fast Bacilli Culture - Preliminary 09/22/20 08:00 Gram Stain - Preliminary Bronchial Washings - Left Bronchial Washings Culture - Preliminary 09/22/20 08:00 Fungal Culture - Preliminary Bronchial Washings - Left Assessment and Plan Assessment: Bilateral pneumonia male in the left lower lobe with patchy Labs pulmonary infiltrate and organizing consolidation. Status post left bronchial biopsy, located by postprocedure bleeding Acute hypoxic respiratory failure, was on mechanical ventilation, status post extubation Hypertension. Hyperlipidemia Chronic kidney disease Patient is Anabaptist History of DVT/PE Plan: This is an 89 years old female who presents with respiratory failure, and left bronchial biopsy complicated by bleeding. Continue with oxygen therapy status post extubation. Follow-up recommendation by pulmonary/critical care team. Continue with Levaquin. Follow-up culture results Labs and medication were reviewed.. Continue same treatment. Continue with symptomatic treatment. Resume home medication. Monitor lytes and vitals. DVT and GI prophylaxis. Further recommendations as per clinical course of the patient DVT prophylaxis: No anticoagulation in view of bleeding GI Prophylaxis: Pepcid Prognosis is guarded
[2020-09-24] MEDS: guaiFENesin SYRUP 100MG/5ML 200 MG/10 ML CUP PO SCH ×3 (05:35→17:25)
[2020-09-24] MEDS: ALBUTEROL NEBULIZED 2.5 MG/3 ML INHALATION SCH ×4 (07:35→20:41)
[2020-09-24] MEDS: predniSONE 20 MG TAB PO SCH (09:13)
[2020-09-24] MEDS: FAMOTIDINE 20 MG TAB PO SCH (09:13)
--- NOTE | 2020-09-24 12:23 | P.PN ---
Subjective Progress Note Date: 09/24/20 On today's evaluation of 09/22/2020 the patient is hemodynamically stable and she is calm and comfortable. Overnight, she was kept on a mechanical ventilator. This morning, she has a tidal volume of 450 with a rate of 24 and FiO2 of 50% with a PEEP of 5. The blood gases from this morning shows adequate oxygenation and ventilation. The patient'sShowed a pH of 7.38 with a pCO2 of 33 and pO2 of 104. Chest x-ray shows some atelectasis/infiltration of the left lung base. There is no evidence of any pneumothorax. A tube is in a good location. Overnight, the patient had some lower urine output. She was given a bolus of 1 L of IV fluid and currently she is on normal saline at rate of 75 mL an hour. She is producing adequate amount of urine output. She is on propofol running at 35 g. She is responsive upon stimulation. She is following commands. Hemoglobin dropped down to 11.7. No other atypical massive drop in hemoglobin. The plan is to do a second look via bronchoscopy and subsequently proceed with some weaning parameters and possible extubation today. The patient is seen today 09/23/2020 in [facility] in the intensive care unit. She is currently maintaining good O2 saturations in the 90s on 6 L/m per nasal cannula. She is awake and alert in no acute distress. She denies any worsening shortness of breath. Continues with a loose nonproductive cough. No hemoptysis. No fever, chills or night sweats. She is swallowing well. Tolerating her diet. Chest x-ray continues to show some left lower lobe atelectasis/infiltrate. She remains on Levaquin.White count 15.6. Hemoglobin 10.8. Platelets 149. Sodium 140. Potassium 4.5. Bicarb 21. Creatinine 1.46. Bronchial wash results are still pending. On 09/26/2020, the patient is being seen for a follow-up. No hemoptysis. She is currently on 4 L of oxygen by nasal cannula. She was transferred out of the intensive care unit yesterday. She is feeling well. She is currently on Levaquin and Zosyn. Prednisone burst taper. He is feeling well. A little bit fatigued. Otherwise, she is bringing up some sputum. No fever. No chills. She is tolerating her diet. Objective - Vital Signs Vital signs: Vital Signs Temp 98.6 F 09/24/20 08:00 Pulse 82 09/24/20 11:24 Resp 18 09/24/20 08:13 BP 146/70 09/24/20 08:00 Pulse Ox 95 09/24/20 08:00 Intake & Output 09/23/20 09/24/20 09/24/20 18:59 06:59 18:59 Output Total 475 Balance -475 Output: Urine 475 Other: Voiding Method Indwelling Catheter Bedpan # Voids 0 - Exam Gen. appearance she is calm comfortable awake and alert and she is following commands and answering questions. She is on 4 L of oxygen by nasal cannula. Head exam was generally normal. There was no scleral icterus or corneal arcus. Mucous membranes were moist. Neck was supple and without jugular venous distension, thyromegaly, or carotid bruits. Carotids were easily palpable bilaterally. There was no adenopathy. Lungs were clear to auscultation and percussion, and with normal diaphragmatic excursion. No wheezes or rales were noted. Occasional rhonchi and no wheezing. Cardiac exam revealed the PMI to be normally situated and sized. The rhythm was regular and no extrasystoles were noted during several minutes of auscultation. The first and second heart sounds were normal and physiologic splitting of the second heart sound was noted. There were no murmurs, rubs, clicks, or gallops. Abdominal exam revealed normal bowel sounds. The abdomen was soft, non-tender, and without masses, organomegaly, or appreciable enlargement of the abdominal aorta. Examination of the extremities revealed easily palpable radial, femoral and pedal pulses. There was no cyanosis, clubbing or edema. Examination of the skin revealed no evidence of significant rashes, suspicious appearing nevi or other concerning lesions. - Labs CBC & Chem 7: 09/23/20 03:34 09/23/20 03:34 Labs: Microbiology - Last 24 Hours (Table) 09/22/20 08:00 Gram Stain - Final Bronchial Washings - Left Bronchial Washings Culture - Final Assessment and Plan Plan: 1 bilateral pulmonary infiltrates with extensive consolidation of the left lower lobe with areas of patchy groundglass pulmonary infiltrates bilaterally. The patient is postnavigational bronchoscopy. 2 massive endobronchial bleeding. Following a transbronchial bronchial biopsy of the left lower lobe. Active signs of bleeding. The patient had to be kept intubated following the procedure and subsequently she was extubated and she was transferred to a regular medical floor. Currently she is on 4 L of oxygen by nasal cannula and this is being gradually weaned. No signs of any acute bleeding at this point in time. No evidence of any pneumothorax.. 3 acute hypoxic respiratory failure secondary to above, improved 4 previous history of pulmonary embolism, the patient was taken anticoagulation with Eliquis on outpatient basis. At the anticoagulation discontinued prior to this procedure. In addition the patient has a history of DVT of the right lower extremity 5 hypertension 6 hyperlipidemia 7 chronic kidney disease 8 the patient is a [employer] Plan Repeat chest x-ray in the morning Provide patient incentive spirometer Deep breathing and pulmonary toileting Continue Levaquin and a prednisone burst taper Possible discharge home tomorrow. She may need potentially oxygen. She'll follow-up with me in the office. The results of the bronchioloalveolar lavage is not showing any microbial growth.
[2020-09-24] MEDS: SODIUM CHLORIDE 0.9% 1,000 ML IV SCH (13:00)
--- NOTE | 2020-09-24 20:38 | P.PN ---
Subjective This is a pleasant 89 years old female with past medical history of hypertension, hyperlipidemia, DVT/pulmonary embolism was on Eliquis 10 mg twice daily. Patient originally developed increased coughing with congestion and chest x-ray showing extensive left lower lobe pneumonia. Patient does not improve with antibiotics with Levaquin, CAT scan of the chest showed resistant organizing consolidation with surrounding articulation and groundglass opacity of the left lung base laterally. Multifocal areas of vertical or consolidation throughout the lungs is redemonstrated bilaterally. Patient underwent bronchoscopy today for bronchoalveolar lavage and obtaining transbronchial biopsy of the left lower lobe. However after the biopsy patient had massive endotracheal bleeding. Eventually patient kept intubated and transferred to the ICU for further management. Looks like the bleeding stopped and hemoglobin is noted to be monitored. 09/22/2020 Patient underwent flexible bronchoscopy with evacuation of blood clots and BAL of the left lower lobe today. Multiple cultures are pending Followed by sedation holiday and extubation, post extubation patient feeling generally weak but she follows commands with no specific complaint. She is saturating 94% on follow-up on 5 L/m oxygen Antibiotic was admitted to the form of Levaquin Creatinine at baseline of 1.4 if she has chronic kidney disease. CBC is unremarkable 09/23/2020 Today patient is more awake and alert, she follow commands, she's not in distress, Vitas looks stable. She is saturating 93-94% on 3 L oxygen via nasal cannula Patient denies specific complaint and she tolerates diet Her medication is wished to prednisone 40 mg daily and Levaquin swished orally. Continue with gentle hydration. She has leukocytosis but also she is on steroids. Creatinine is stable at 1.4. Culture are still pending Patient can be transferred out of the ICU to the general medical floor today 09/24/2020 Patient is awake and alert, her dyspnea is improving although has not resolved. She still have some coughing and bronchitis or phlegm. On on examination she has decreased breath sounds in the left lower lung. She has mild leukocytosis at 15 K but she is on steroids. Creatinine is stable at 1.4 with chronic kidney disease Follow-up culture results from bronchoscopy and bronchoalveolar lavage She remains on oral prednisone 40 mg, oral Levaquin and renal dose and normal saline at 75 mL/h Physical therapy recommended subacute rehab, I talked to the patient and she was hesitant about it but she is willing to talk to the social professionals. Review of systems CONSTITUTIONAL: No fever, no malaise, no fatigue. HEENT: No recent visual problems or hearing problems. Denied any sore throat. CARDIOVASCULAR: No orthopnea, PND, no palpitations, no syncope. PULMONARY: No shortness of breath, no cough, no hemoptysis. GASTROINTESTINAL: No diarrhea, no nausea, no vomiting, no abdominal pain. Normoactive bowel sounds. NEUROLOGICAL: No headaches, no weakness, no numbness. HEMATOLOGICAL: Denies any bleeding or petechiae. Active Medications Generic Name Dose Route Start Last Admin Trade Name Freq PRN Reason Stop Dose Admin Acetaminophen 650 mg 09/23/20 09:08 Acetaminophen Tab 325 Mg Tab PO Q6HR PRN Fever and/ or Pain Albuterol Sulfate 2.5 mg 09/21/20 20:00 09/23/20 19:38 Albuterol Nebulized 2.5 Mg/3 Ml INHALATION Not Given RT-QID GINNY Famotidine 20 mg 09/23/20 09:00 09/23/20 09:07 Famotidine 20 Mg Tab PO 20 mg DAILY GINNY Administration Guaifenesin 200 mg 09/23/20 00:00 09/23/20 23:02 Guaifenesin Syrup 100mg/5ml 200 Mg/10 Ml Cup PO 200 mg Q6HR GINNY Administration Sodium Chloride 1,000 mls @ 75 mls/hr 09/21/20 06:00 09/23/20 20:21 Saline 0.9% IV Not Given .[id number] GINNY Levofloxacin 750 mg 09/25/20 09:00 Levofloxacin 750 Mg Tab PO Q48H GINNY Prednisone 40 mg 09/23/20 09:00 09/23/20 09:07 Prednisone 20 Mg Tab PO 40 mg DAILY GINNY Administration Objective - Vital Signs Vital signs: Vital Signs Temp 98.7 F 09/24/20 14:00 Pulse 82 09/24/20 16:25 Resp 17 09/24/20 14:00 BP 146/76 09/24/20 14:00 Pulse Ox 92 L 09/24/20 14:00 Intake & Output 09/23/20 09/24/20 09/24/20 18:59 06:59 18:59 Output Total 475 Balance -475 Output: Urine 475 Other: Voiding Method Indwelling Catheter Bedpan # Voids 0 - Exam -GENERAL: The patient is alert and oriented x3, not in any acute distress. She feels generally weak but she follows commands nourished. HEENT: Pupils are round and equally reacting to light. EOMI. No scleral icterus. No conjunctival pallor. Normocephalic, atraumatic. No pharyngeal erythema. No thyromegaly. CARDIOVASCULAR: S1 and S2 present. No murmurs, rubs, or gallops. PULMONARY: Chest is clear to auscultation, no wheezing or crackles. ABDOMEN: Soft, nontender, nondistended, normoactive bowel sounds. No palpable organomegaly. Guadarrama catheter is in place MUSCULOSKELETAL: No joint swelling or deformity. EXTREMITIES: No cyanosis, clubbing, or pedal edema. NEUROLOGICAL: Gross neurological examination did not reveal any focal deficits. SKIN: No rashes. no petechiae. - Labs CBC & Chem 7: 09/23/20 03:34 09/23/20 03:34 Labs: Microbiology - Last 24 Hours (Table) 09/22/20 08:00 Gram Stain - Final Bronchial Washings - Left Bronchial Washings Culture - Final Assessment and Plan Assessment: Bilateral pneumonia male in the left lower lobe with patchy Labs pulmonary infiltrate and organizing consolidation. Status post left bronchial biopsy, located by postprocedure bleeding Acute hypoxic respiratory failure, was on mechanical ventilation, status post extubation Hypertension. Hyperlipidemia Chronic kidney disease Patient is Jewish History of DVT/PE Plan: This is an 89 years old female who presents with respiratory failure, and left bronchial biopsy complicated by bleeding. Continue with oxygen therapy status post extubation. Follow-up recommendation by pulmonary/critical care team. Continue with Levaquin. Follow-up culture results Labs and medication were reviewed.. Continue same treatment. Continue with symptomatic treatment. Resume home medication. Monitor lytes and vitals. DVT and GI prophylaxis. Further recommendations as per clinical course of the patient DVT prophylaxis: No anticoagulation in view of bleeding GI Prophylaxis: Pepcid Prognosis is guarded
[2020-09-25] MEDS: guaiFENesin SYRUP 100MG/5ML 200 MG/10 ML CUP PO SCH ×4 (00:30→17:16)
[2020-09-25] MEDS: SODIUM CHLORIDE 0.9% 1,000 ML IV SCH ×2 (00:57→15:50)
[2020-09-25] MEDS: ALBUTEROL NEBULIZED 2.5 MG/3 ML INHALATION SCH ×4 (07:18→19:02)
[2020-09-25] MEDS: predniSONE 20 MG TAB PO SCH (08:39)
[2020-09-25] MEDS: LEVOFLOXACIN 750 MG TAB PO SCH (08:39)
[2020-09-25] MEDS: FAMOTIDINE 20 MG TAB PO SCH (08:39)
--- NOTE | 2020-09-25 09:08 | XR ---
EXAMINATION TYPE: XR chest 1V DATE OF EXAM: 09/25/2020 COMPARISON: 09/23/2020 HISTORY: Cough TECHNIQUE: Single frontal view of the chest is obtained. FINDINGS: There is patchy bilateral upper lobe and right lower lobe infiltrate with a more area of c onsolidation seen in the left lower lobe with pleural effusions. Arthropathy of the shoulders and dif fuse osteopenia. Underlying pulmonary nodularity or mass not excluded. IMPRESSION: 1. Multifocal airspace disease most noted in the left lower lobe with bilateral pleural effusions. Fi ndings are stable correlate for pneumonia.
[2020-09-25 12:56] LABS: HCT 33.1 % (34.0-46.0); HGB 11.2 gm/dL (11.4-16.0); MCH 35.3 pg (25.0-35.0); MCHC 33.8 g/dL (31.0-37.0); MCV 104.4 fL (80.0-100.0); Macrocytosis Slight; Mean Platelet Volume 7.9; Platelet Count 137 k/uL (150-450); RBC 3.17 m/uL (3.80-5.40); RDW 12.7 % (11.5-15.5); WBC 10.7 k/uL (3.8-10.6)
--- NOTE | 2020-09-25 14:11 | PN ---
PROGRESS NOTE This is an 89-year-old female who underwent biopsy by Dr. Somers on September 22. The patient had significant bleeding during the procedure. Currently, she is doing much better. She is still coughing up a small amount of blood. It is mostly dark blood. There is some bright red material as well, but mostly dark red. She is down to 3 L nasal cannula. She was on 4 L yesterday. She was moved out of the intensive care unit 2 days ago. She denies any chest pain or chest discomfort. There is no fever or chills. The patient had been previously ventilated. Biopsy report is still pending. Again, the procedure was done on Tuesday, September 22, 2020. Current vital signs include a temperature which is 98.2, heart rate 80, respiratory rate 18, blood pressure 127/64 mean 85 and saturations on 3 L about 90%. Appears in no acute distress. Sitting up in a chair by the bed. No respiratory distress. No audible wheezing, no use of accessory muscles or conversational dyspnea. HEENT: Examination is grossly unremarkable. NECK: Supple. CARDIOVASCULAR: Examination reveals regular rhythm and rate. Heart rate 80. S1, S2 normal. No S3, S4, or murmur. LUNGS: Reveal a few scattered coarse rhonchi. No wheezes or crackles. Breath sounds equal. ABDOMEN: Soft, bowel sounds are heard. EXTREMITIES: Intact. No edema. SKIN: Without rash. NEUROLOGIC: Examination is nonfocal. LABS: Reviewed. White count 10.7, hemoglobin 11.2, hematocrit 33.1, platelet count 137,000. Most recent hemoglobin prior to the one today was 10.8. Hence, her hemoglobin is stable. Microbiology thus far is all negative. She had a chest x-ray today which showed some consolidation or infiltrative changes particularly in the left lower lobe. I believe this is where the biopsy was done. Current specimens are still pending. MEDICATIONS: Reviewed. The patient is on Tylenol, albuterol inhaler, Pepcid, Robitussin, Levaquin, prednisone and saline IV at 75 mL an hour. ASSESSMENT: 1. Left lower lobe consolidation, status post navigational bronchoscopy on the September 22 with subsequent significant endobronchial bleeding requiring intubation and mechanical ventilation. 2. Previous history of pulmonary embolism. 3. Hyperlipidemia. 4. Chronic kidney disease. 5. History of being a [employer]. 6. Acute hypoxemic respiratory failure. 7. Hypertension. PLAN: Currently, the patient appears to be doing relatively well. She is still coughing up a small amount of mostly dark blood. She is down to 3 L nasal cannula. She is getting saline at 75 mL an hour. The biopsies are currently pending. Thus far, microbiology is negative. Additional recommendations and suggestions are forthcoming. Will continue to follow. Possible discharge within the next 24 to 48 hours. MMODL / IJN: [id number] /
--- NOTE | 2020-09-25 15:09 | P.PN ---
Subjective Progress Note Date: 09/25/20 This is a pleasant 89 years old female with past medical history of hypertension, hyperlipidemia, DVT/pulmonary embolism was on Eliquis 10 mg twice daily. Patient originally developed increased coughing with congestion and chest x-ray showing extensive left lower lobe pneumonia. Patient does not improve with antibiotics with Levaquin, CAT scan of the chest showed resistant organizing consolidation with surrounding articulation and groundglass opacity of the left lung base laterally. Multifocal areas of vertical or consolidation throughout the lungs is redemonstrated bilaterally. Patient underwent bronchoscopy today for bronchoalveolar lavage and obtaining transbronchial biopsy of the left lower lobe. However after the biopsy patient had massive endotracheal bleeding. Eventually patient kept intubated and transferred to the ICU for further management. Looks like the bleeding stopped and hemoglobin is noted to be monitored. 09/22/2020 Patient underwent flexible bronchoscopy with evacuation of blood clots and BAL of the left lower lobe today. Multiple cultures are pending Followed by sedation holiday and extubation, post extubation patient feeling generally weak but she follows commands with no specific complaint. She is saturating 94% on follow-up on 5 L/m oxygen Antibiotic was admitted to the form of Levaquin Creatinine at baseline of 1.4 if she has chronic kidney disease. CBC is unremarkable 09/23/2020 Today patient is more awake and alert, she follow commands, she's not in distress, Vitas looks stable. She is saturating 93-94% on 3 L oxygen via nasal cannula Patient denies specific complaint and she tolerates diet Her medication is wished to prednisone 40 mg daily and Levaquin swished orally. Continue with gentle hydration. She has leukocytosis but also she is on steroids. Creatinine is stable at 1.4. Culture are still pending Patient can be transferred out of the ICU to the general medical floor today 09/24/2020 Patient is awake and alert, her dyspnea is improving although has not resolved. She still have some coughing and bronchitis or phlegm. On on examination she has decreased breath sounds in the left lower lung. She has mild leukocytosis at 15 K but she is on steroids. Creatinine is stable at 1.4 with chronic kidney disease Follow-up culture results from bronchoscopy and bronchoalveolar lavage She remains on oral prednisone 40 mg, oral Levaquin and renal dose and normal saline at 75 mL/h Physical therapy recommended subacute rehab, I talked to the patient and she was hesitant about it but she is willing to talk to the social media job titles. 09/25/2020 Patient is seen and evaluated in follow-up currently sitting up in the chair and remains on 3 L of oxygen via nasal cannula. Discussed with nursing staff about continuing to wean FiO2 as tolerated. Patient does not wear home O2 in the outpatient setting. Pulmonary following closely as patient recently had a bronchoscopy with BAL and biopsies were obtained and currently still pending. Hemoglobin is stable at 11.2, white blood count trending down at 10.7. mary remains on hold status post bronchoscopy with biopsy with post-procedure bleeding noted and will discuss with pulmonary about resuming anticoagulant. Patient is on oral antibiotics in the form of Levaquin along with prednisone oral. Discussed with the patient about discharge planning as physical therapy recommended subacute rehab upon discharge although patient continues to refuse and would like to go home with home care. Will continue to monitor her oxygen status and perform home O2 eval prior to discharge. Incentive spirometer ordered and educated patient to continue using at least 10 times every hour while awake. Case management and social work following for possible discharge planning needs. Review of systems CONSTITUTIONAL: No fever, no malaise, no fatigue. HEENT: No recent visual problems or hearing problems. Denied any sore throat. CARDIOVASCULAR: No orthopnea, PND, no palpitations, no syncope. PULMONARY: No shortness of breath, no cough, no hemoptysis. GASTROINTESTINAL: No diarrhea, no nausea, no vomiting, no abdominal pain. Normoactive bowel sounds. NEUROLOGICAL: No headaches, no weakness, no numbness. HEMATOLOGICAL: Denies any bleeding or petechiae. Objective - Vital Signs Vital signs: Vital Signs Temp 98.2 F 09/25/20 07:59 Pulse 83 09/25/20 07:59 Resp 18 09/25/20 07:59 BP 127/64 09/25/20 07:59 Pulse Ox 90 L 09/25/20 07:59 Intake & Output 09/24/20 09/25/20 09/25/20 18:59 06:59 18:59 Intake Total 236 Balance 236 Intake: Oral 236 Other: Voiding Method Bedpan # Voids 3 1 2 # Bowel Movements 1 - Exam GENERAL: The patient is alert and oriented x3, not in any acute distress. She feels generally weak but she follows commands, well developed, well nourished. HEENT: Pupils are round and equally reacting to light. EOMI. No scleral icterus. No conjunctival pallor. Normocephalic, atraumatic. No pharyngeal erythema. No thyromegaly. CARDIOVASCULAR: S1 and S2 present. No murmurs, rubs, or gallops. PULMONARY: Diminished breath sounds bilaterally with some scattered rhonchi noted ABDOMEN: Soft, nontender, nondistended, normoactive bowel sounds. No palpable organomegaly. MUSCULOSKELETAL: No joint swelling or deformity. EXTREMITIES: No cyanosis, clubbing, or pedal edema. NEUROLOGICAL: Gross neurological examination did not reveal any focal deficits. SKIN: No rashes. no petechiae. - Labs CBC & Chem 7: 09/25/20 12:31 09/23/20 03:34 Labs: Microbiology - Last 24 Hours (Table) 09/22/20 08:00 Gram Stain - Final Bronchial Washings - Left Bronchial Washings Culture - Final Assessment and Plan Assessment: Bilateral pneumonia in the left lower lobe with patchy pulmonary infiltrate and organizing consolidation. Status post left bronchial biopsy, with post-procedure bleeding Acute hypoxic respiratory failure, was on mechanical ventilation, status post extubation Hypertension Hyperlipidemia Chronic kidney disease Patient is [employer] History of DVT/PE GI prophylaxis: Pepcid DVT prophylaxis: No anticoagulation at this time in view of bleed Plan: This is an 89 years old female who presents with respiratory failure, and left bronchial biopsy complicated by bleeding. Continue with oxygen therapy status post extubation. Follow-up recommendation by pulmonary/critical care team. Continue with Levaquin. Follow-up culture results. Discussed with nursing staff about weaning FiO2 as tolerated and having home O2 evaluation performed. PT/OT following recommending subacute rehab although patient is refusing and would like to go home with home care. Incentive spirometer at the bedside and instructed the patient to continue using 10 times every hour while awake and increasing activity as tolerated. Rolling walker also at the bedside. Labs and medication were reviewed.. Continue same treatment. Continue with symptomatic treatment. Resume home medication. Monitor lytes and vitals. DVT and GI prophylaxis. Further recommendations as per clinical course of the patient. Possible discharge in 24-48 hours. Case management and social work following arranging for discharge planning needs as patient is refusing ECF for continued rehab. Prognosis is guarded Time with Patient: Greater than 30
[2020-09-26] MEDS: guaiFENesin SYRUP 100MG/5ML 200 MG/10 ML CUP PO SCH ×5 (01:00→23:05)
[2020-09-26] MEDS: SODIUM CHLORIDE 0.9% 1,000 ML IV SCH (04:12)
[2020-09-26] MEDS: predniSONE 20 MG TAB PO SCH (09:10)
[2020-09-26] MEDS: FAMOTIDINE 20 MG TAB PO SCH (09:10)
[2020-09-26] MEDS: ALBUTEROL NEBULIZED 2.5 MG/3 ML INHALATION SCH ×4 (09:29→19:15)
[2020-09-26 10:13] LABS: African American GFR (CKD) 34 (>60 ml/min/1.73 sqM); Anion Gap 7 mmol/L; Blood Urea Nitrogen 29 mg/dL (7-17); Calcium 9.2 mg/dL (8.4-10.2); Carbon Dioxide 23 mmol/L (22-30); Chloride 110 mmol/L (98-107); Glucose 117 mg/dL (74-99); Non-African American GFR(CKD) 29 (>60 ml/min/1.73 sqM); Potassium 3.5 mmol/L (3.5-5.1); Sodium 140 mmol/L (137-145)
--- NOTE | 2020-09-26 14:14 | PN ---
PROGRESS NOTE PULMONARY/CRITICAL CARE PROGRESS NOTE: DATE OF SERVICE: September 26, 2020. INTERVAL HISTORY: This is an 89-year-old female who underwent biopsy by Dr. Somers on September 22. The patient had significant disease noted in the left lower lobe with significant consolidation. During the procedure, the patient had significant bleeding after biopsies were performed. She ended up staying on the ventilator for a day and was then successfully extubated the following day. The patient is still coughing up some blood. Most of it is dark. Some of it is bright red. Currently, she is on 2 L nasal cannula. She is not getting any IV fluids. She otherwise is doing reasonably well. She denies any fever chills. There is no chest congestion or significant cough. No wheezing. No chest pain or chest discomfort. No nausea, vomiting, diarrhea, abdominal pain or genitourinary complaints. PHYSICAL EXAMINATION: VITAL SIGNS: Current vital signs are reviewed. Temperature is 98.2, heart rate 82, respiratory rate 18, blood pressure 153/74, mean 100. 4 L saturation is 90%. 2 L saturations also 90%. The patient is a NO CODE patient. HEENT: Examination is grossly unremarkable. NECK: Supple. Full range of motion. No adenopathy. Neck veins are flat. CARDIOVASCULAR: Examination reveals regular rhythm and rate. Heart rate mid 70s. S1, S2 normal. Heart sounds are distant. LUNGS: Diffuse crackles throughout. A few scattered rhonchi. No wheezes. ABDOMEN: Soft. Bowel sounds are heard. EXTREMITIES are intact. No cyanosis, clubbing, or edema. SKIN: Without rash. NEUROLOGIC: Examination is nonfocal. LABS: Reviewed. From September 26: Sodium 140, potassium 3.5, chloride 110, CO2 23, anion gap is 7, BUN and creatinine were 29 and 1.58. 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 Cytology was negative. Microbiology is negative. MEDICATIONS: Reviewed. Currently, the patient is on Tylenol, albuterol, famotidine, Robitussin, Levaquin and prednisone. ASSESSMENT: 1. Left lower lobe consolidation, status post navigational bronchoscopy on September 22 with significant endobronchial bleeding requiring intubation, mechanical ventilation. 2. Biopsies, left lower lobe, obtained by navigational bronchoscopy consistent with well-differentiated papillary adenocarcinoma. 3. Previous history of pulmonary embolism. 4. Hyperlipidemia. 5. History of chronic kidney disease. 6. History of being a [employer]. 7. Acute hypoxemic respiratory failure. 8. History of hypertension. PLAN: The patient is going to potentially be discharged today. She continues to cough up a small amount of blood. No additional recommendations are made. She will need oncology evaluation. Given her age and her poor overall functional status, it would be hard pressed to do much for this lady in regard to treatment as I do not believe she will tolerate it as much. Additional recommendations and suggestions are forthcoming. The patient will follow up with Dr. Somers in the office. MMODL / IJN: [id number] /
--- NOTE | 2020-09-26 15:58 | P.PN ---
Subjective Progress Note Date: 09/26/20 This is a pleasant 89 years old female with past medical history of hypertension, hyperlipidemia, DVT/pulmonary embolism was on Eliquis 10 mg twice daily. Patient originally developed increased coughing with congestion and chest x-ray showing extensive left lower lobe pneumonia. Patient does not improve with antibiotics with Levaquin, CAT scan of the chest showed resistant organizing consolidation with surrounding articulation and groundglass opacity of the left lung base laterally. Multifocal areas of vertical or consolidation throughout the lungs is redemonstrated bilaterally. Patient underwent bronchoscopy today for bronchoalveolar lavage and obtaining transbronchial biopsy of the left lower lobe. However after the biopsy patient had massive endotracheal bleeding. Eventually patient kept intubated and transferred to the ICU for further management. Looks like the bleeding stopped and hemoglobin is noted to be monitored. 09/22/2020 Patient underwent flexible bronchoscopy with evacuation of blood clots and BAL of the left lower lobe today. Multiple cultures are pending Followed by sedation holiday and extubation, post extubation patient feeling generally weak but she follows commands with no specific complaint. She is saturating 94% on follow-up on 5 L/m oxygen Antibiotic was admitted to the form of Levaquin Creatinine at baseline of 1.4 if she has chronic kidney disease. CBC is unremarkable 09/23/2020 Today patient is more awake and alert, she follow commands, she's not in distress, Vitas looks stable. She is saturating 93-94% on 3 L oxygen via nasal cannula Patient denies specific complaint and she tolerates diet Her medication is wished to prednisone 40 mg daily and Levaquin swished orally. Continue with gentle hydration. She has leukocytosis but also she is on steroids. Creatinine is stable at 1.4. Culture are still pending Patient can be transferred out of the ICU to the general medical floor today 09/24/2020 Patient is awake and alert, her dyspnea is improving although has not resolved. She still have some coughing and bronchitis or phlegm. On on examination she has decreased breath sounds in the left lower lung. She has mild leukocytosis at 15 K but she is on steroids. Creatinine is stable at 1.4 with chronic kidney disease Follow-up culture results from bronchoscopy and bronchoalveolar lavage She remains on oral prednisone 40 mg, oral Levaquin and renal dose and normal saline at 75 mL/h Physical therapy recommended subacute rehab, I talked to the patient and she was hesitant about it but she is willing to talk to the social welfare administrator. 09/25/2020 Patient is seen and evaluated in follow-up currently sitting up in the chair and remains on 3 L of oxygen via nasal cannula. Discussed with nursing staff about continuing to wean FiO2 as tolerated. Patient does not wear home O2 in the outpatient setting. Pulmonary following closely as patient recently had a bronchoscopy with BAL and biopsies were obtained and currently still pending. Hemoglobin is stable at 11.2, white blood count trending down at 10.7. mary remains on hold status post bronchoscopy with biopsy with post-procedure bleeding noted and will discuss with pulmonary about resuming anticoagulant. Patient is on oral antibiotics in the form of Levaquin along with prednisone oral. Discussed with the patient about discharge planning as physical therapy recommended subacute rehab upon discharge although patient continues to refuse and would like to go home with home care. Will continue to monitor her oxygen status and perform home O2 eval prior to discharge. Incentive spirometer ordered and educated patient to continue using at least 10 times every hour while awake. Case management and social work following for possible discharge planning needs. 09/26/2020 Patient is seen in follow-up to need to require 2-4 liters of oxygen via nasal cannula as her oxygenation saturation was found to be 87% on room air with ambulation and 91% on 2 L. Pathology report came back today from lung biopsy stating well-differentiated papillary adenocarcinoma and oncology has been consulted. Pulmonary following. IV fluids have been discontinued and patient is tolerating diet with no reports of nausea or vomiting noted. Patient continues to have poor appetite and not eating very much but is eating at meals. Patient continues to refuse any form of rehab and would like to go home with home care. Will await oncology report. Review of systems CONSTITUTIONAL: No fever, no malaise, no fatigue. HEENT: No recent visual problems or hearing problems. Denied any sore throat. CARDIOVASCULAR: No orthopnea, PND, no palpitations, no syncope. PULMONARY: No shortness of breath, no cough, no hemoptysis. GASTROINTESTINAL: No diarrhea, no nausea, no vomiting, no abdominal pain. Normoactive bowel sounds. NEUROLOGICAL: No headaches, no weakness, no numbness. HEMATOLOGICAL: Denies any bleeding or petechiae. Objective - Vital Signs Vital signs: Vital Signs Temp 98.2 F 09/26/20 07:29 Pulse 82 09/26/20 07:29 Resp 18 09/26/20 09:14 BP 153/74 09/26/20 07:29 Pulse Ox 90 L 09/26/20 07:29 Intake & Output 09/25/20 09/26/20 09/26/20 18:59 06:59 18:59 Intake Total 686 236 Balance 686 236 Intake: Oral 686 236 Other: Voiding Method Bedpan # Voids 2 1 1 - Exam GENERAL: The patient is alert and oriented x3, not in any acute distress. She feels generally weak but she follows commands, well developed, well nourished. HEENT: Pupils are round and equally reacting to light. EOMI. No scleral icterus. No conjunctival pallor. Normocephalic, atraumatic. No pharyngeal erythema. No thyromegaly. CARDIOVASCULAR: S1 and S2 present. No murmurs, rubs, or gallops. PULMONARY: Diminished breath sounds bilaterally with some scattered rhonchi noted ABDOMEN: Soft, nontender, nondistended, normoactive bowel sounds. No palpable organomegaly. MUSCULOSKELETAL: No joint swelling or deformity. EXTREMITIES: No cyanosis, clubbing, or pedal edema. NEUROLOGICAL: Gross neurological examination did not reveal any focal deficits. SKIN: No rashes. no petechiae. - Labs CBC & Chem 7: 09/25/20 12:31 09/26/20 09:16 Labs: Abnormal Lab Results - Last 24 Hours (Table) 09/25/20 09/26/20 Range/Units 12:31 09:16 WBC 10.7 H (3.8-10.6) k/uL RBC 3.17 L (3.80-5.40) m/uL Hgb 11.2 L (11.4-16.0) gm/dL Hct 33.1 L (34.0-46.0) % MCV 104.4 H (80.0-100.0) fL MCH 35.3 H (25.0-35.0) pg Plt Count 137 L (150-450) k/uL Chloride 110 H (98-107) mmol/L BUN 29 H (7-17) mg/dL Creatinine 1.58 H (0.52-1.04) mg/dL Glucose 117 H (74-99) mg/dL Assessment and Plan Assessment: Bilateral pneumonia in the left lower lobe with patchy pulmonary infiltrate and organizing consolidation. 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 Continue with oxygen therapy status post extubation. Follow-up recommendation by pulmonary/critical care team. Continue with Levaquin. Lung biopsy pathology report showing well- differentiated papillary adenocarcinoma and oncology was consulted Discussed with nursing staff about weaning FiO2 as tolerated and having home O2 evaluation performed. PT/OT following recommending subacute rehab although patient is refusing and would like to go home with home care. Incentive spirometer at the bedside and instructed the patient to continue using 10 times every hour while awake and increasing activity as tolerated. Rolling walker also at the bedside. Further recommendations as per clinical course of the patient. Possible discharge in 24-48 hours. Case management and social work following arranging for discharge planning needs as patient is refusing ECF for continued rehab. Prognosis is guarded
[2020-09-27 02:07] VITALS: RESP 16
[2020-09-27] MEDS: guaiFENesin SYRUP 100MG/5ML 200 MG/10 ML CUP PO SCH ×2 (05:13→13:29)
[2020-09-27 08:18] VITALS: BP 135/69; TEMP 98.1
[2020-09-27] MEDS: LEVOFLOXACIN 750 MG TAB PO SCH (08:25)
[2020-09-27] MEDS: predniSONE 20 MG TAB PO SCH (08:25)
[2020-09-27] MEDS: FAMOTIDINE 20 MG TAB PO SCH (08:25)
[2020-09-27] MEDS: ALBUTEROL NEBULIZED 2.5 MG/3 ML INHALATION SCH ×2 (10:04→10:59)
[2020-09-27 11:12] VITALS: PULSE 97
--- NOTE | 2020-09-27 11:40 | PN ---
PROGRESS NOTE PULMONARY/CRITICAL CARE PROGRESS NOTE: DATE OF SERVICE: 09/27/2020 This is a very pleasant 89-year-old female who sees my partner. She underwent biopsy by Dr. Somers on September 22 for a consolidative change in the left lower lobe. During the procedure, she ended up having a lot of bleeding. The patient remained on the ventilator overnight and was extubated subsequent day. The patient's biopsy did come back showing evidence of a well-differentiated papillary adenocarcinoma. I did make sure that the patient has a followup appointment with Dr. Somers in the office. In addition, I asked for Oncology to see the patient before discharge. The patient has a previous history of pulmonary embolism, hyperlipidemia, chronic kidney disease, she is a Scientologist, has a history of acute hypoxemic respiratory failure, and essential hypertension. I spoke with her at some length today. The patient is not sure as to what she might want to do. Oncology did meet with her. She is going to pray on it, talk to her family and also speak to Dr. Somers as to whether or not she should agree for treatment. Anyway, the patient is still a bit congested in the chest. She is on O2 at 2 L. She is not receiving any IV fluids. She still is coughing up occasional bright red and dark blood. Current vital signs are reviewed. Temperature is 98.1, heart rate 65, respiratory rate 16, blood pressure 135/69 mean 91, and saturations are 91% on 2 L. She appears in no acute distress. HEENT: Examination is grossly unremarkable. Nasal O2 noted. NECK: Supple, full range of motion. No adenopathy. Neck veins are flat. CARDIOVASCULAR: Examination reveals regular rhythm and rate. Heart rate 87 beats per minute. S1, S2 normal. Heart sounds are distant. LUNGS: Reveal some coarse rhonchi bilaterally. They were mostly noted on exhalation. No wheezes or crackles. ABDOMEN: Soft, bowel sounds are heard. EXTREMITIES: Intact. No cyanosis, clubbing, or edema. SKIN: Without rash. NEUROLOGIC: Examination is nonfocal. LABS: No new labs to report. Her last CBC was on 09/25 and her last basic metabolic profile was on 09/26. All her microbiology thus far from the bronch washes have been negative or pending. No recent chest x-ray to report. The last chest x-ray from 09/25 does show significant left lower lobe consolidation. CURRENT MEDICATIONS: Reviewed. She is on Tylenol, albuterol inhaler, famotidine, Robitussin, Levaquin and prednisone. ASSESSMENT: 1. Left lower lobe consolidation, status post navigational bronchoscopy on September 22 with significant endobronchial bleeding requiring intubation and mechanical ventilation. 2. Biopsies, left lower lobe, obtained by navigational bronchoscopy consistent with well-differentiated papillary adenocarcinoma. 3. Previous history of pulmonary embolism. 4. Hyperlipidemia. 5. History of chronic kidney disease. 6. History of being a Scientologist. 7. Acute hypoxemic respiratory failure. 8. History of essential hypertension. PLAN: Today, I had a long discussion with the patient. She is not sure exactly where she is going to do. Oncology did meet with her. There was no consult on the chart from them as yet. The patient is hoping to be discharged in the near future. She will discuss it with her family and she will also discuss with are Dr. Somers in followup. No additional recommendations are made. Prognosis is guarded given her age and her diagnosis. Will continue to follow. MMODL / IJN: [id number] / YENY
--- NOTE | 2020-09-27 12:05 | P.DS ---
Providers Date of admission: 09/21/20 14:22 Expected date of discharge: 09/27/20 Attending physician: Kenyetta Cavazos Consults: 09/26/20 12:52 Consult Physician Stat Consulting Provider: Galen Lopez Consult Reason/Comments: new cancer dx Do you want consulting provider notified?: Yes Primary care physician: Nakia Somers [facility] Course: Final diagnosis Bilateral pneumonia in the left lower lobe with patchy pulmonary infiltrate and organizing consolidation. Status post left bronchial biopsy, with post-procedure bleeding, biopsy reveals differentiated papillary adenocarcinoma Acute hypoxic respiratory failure, was on mechanical ventilation, status post extubation Hypertension Hyperlipidemia Chronic kidney disease Patient is Orthodoxy History of DVT/PE GI prophylaxis DVT prophylaxis Discharge disposition Patient is being discharged in a stable condition with guarded prognosis to home and will continue with home care in the outpatient setting. Patient will follow-up with Dr. Somers in the outpatient setting upon discharge. Patient also provided information and resources to follow-up with oncology Dr. Lopez in the outpatient setting. Patient is to continue with oral antibiotics in the form of Levaquin 750 mg every 48 hours for the next week to complete the course. She will also continue on a prednisone taper. Total time taken is greater than 35 minutes. History of present illness This is an 89-year-old female who was recently admitted with cough, congestion, left lower lobe pneumonia and was being closely monitored. Pulmonary following closely and patient underwent bronchoscopy with BAL along with biopsies. Patient had postoperative endotracheal bleeding which led to intubation and ICU transfer for close monitoring and patient is currently maintained off of anticoagulant. Patient was on anticoagulant for previous history of pulmonary embolism. She will continue to hold anticoagulants until follow-up with Dr. Somers. She continues to have a cough that is blood-tinged in the sputum although no active bleeding noted. Most current hemoglobin is stable at 11.2. Patient's pathology on the biopsy came back positive as differentiated papillary adenocarcinoma. Patient was seen and evaluated by oncology recommending further testing to assess for metastasis although patient is refusing at this time and would like to discuss this with her family in the outpatient setting and follow- up with them. Patient continued to require oxygen with low oxygen saturations and had a home O2 eval done and patient oxygen saturation was only 89% with exertion and does not qualify for home oxygen upon discharge. Patient instructed to continue using her incentive spirometer at least 10 times every hour while awake in the home setting. Patient will continue with home care outpatient. She needs to discuss with her family about treatment plan moving forward and possibility of palliative care in the outpatient setting. Patient w as seen and evaluated by PT/OT therapy recommending subacute rehab although patient refuses and states she is agreeable to home care. Patient would like to go home today. Currently no reports of chest pain, worsening shortness of breath, or palpitations. Patient is afebrile. No reports of nausea or vomiting and patient is tolerating diet. Patient will be going home today. On exam vital signs are stable. Temp is 98.1F, pulse is 65, respirations are 16, blood pressure is 135/69, oxygen saturation is 89-91% on room air. Cardio S1, S2 are muffled. Respiratory system shows diminished breath sounds at the bases with no wheezing or rhonchi noted. Abdomen is soft and nontender. Nervous system shows diffuse weakness with no focal deficits. Please refer to medication reconciliation sheet for a list of medications. Patient Condition at Discharge: Stable Plan - Discharge Summary Discharge Rx Participant: No New Discharge Prescriptions: New Levofloxacin [Levaquin] 750 mg PO Q48H #5 tab Famotidine [Pepcid] 20 mg PO DAILY 30 Days #30 tab predniSONE 10 mg PO DIRECTED #30 tab guaiFENesin SYRUP 100MG/5ML [Robitussin] 200 mg PO Q6HR #120 ml Albuterol Inhaler [Ventolin Hfa Inhaler] 1 puff INHALATION RT-QID 30 Days #1 puff Continue Acetaminophen Tab [Tylenol] 1,000 mg PO Q4H PRN PRN Reason: Pain Discontinued amLODIPine [Norvasc] 10 mg PO DAILY Simvastatin [Zocor] 20 mg PO HS Apixaban [Eliquis] 10 mg PO BID tab Discharge Medication List Acetaminophen Tab [Tylenol] 1,000 mg PO Q4H PRN 11/09/18 [History] Albuterol Inhaler [Ventolin Hfa Inhaler] 1 puff INHALATION RT-QID 30 Days #1 puff 09/27/20 [Rx] Famotidine [Pepcid] 20 mg PO DAILY 30 Days #30 tab 09/27/20 [Rx] Levofloxacin [Levaquin] 750 mg PO Q48H #5 tab 09/27/20 [Rx] guaiFENesin SYRUP 100MG/5ML [Robitussin] 200 mg PO Q6HR #120 ml 09/27/20 [Rx] predniSONE 10 mg PO DIRECTED #30 tab 09/27/20 [Rx] Follow up Appointment(s)/Referral(s): Galen Lopez MD [STAFF PHYSICIAN] - 1 Week (Please contact office for appt if questions about diagnosis or wanting to move forward and complete work up.) [facility], [NON-STAFF] - 1-2 Days Nakia Somers MD [Primary Care Provider] - 10/18/20 9:45 am Activity/Diet/Wound Care/Special Instructions: Activity Limited until follow-up Follow-up with primary care provider upon discharge Discuss with family and follow-up with oncology in the outpatient setting Follow up with pulmonary in the outpatient setting Continue with antibiotics until finished Continue with prednisone taper until finished Continue to hold anticoagulants until pulmonary follow-up Continue current diet Continue with home care
[2020-09-27 12:35] VITALS: BMI 30.7
--- NOTE | 2020-09-27 14:46 | P.CONS ---
History of Present Illness - Reason for Consult Consult date: 09/27/20 Papillary lung carcinoma Requesting physician: Americo Elkins - Chief Complaint persistent lung infection - History of Present Illness Mrs. Joshua is a very pleasant 89 yo female we have been asked to see regarding new diagnosis of well differentiated papillary adenocarcinoma on lung biopsy 09/21/20. Symptoms she presented with were increased mucus and sputum. She has been followed by Pulmonary and was treated for suspected respiratory infection. Her symptoms did not improve and she had persistent changes to the lungs noted on imaging which let to the bronchoscopy, BAL and biopsy. She states decreased appetite and moderate wt loss but, no other symptoms. She has overall well controlled co-morbid conditions. She denies any pain. Still having small amt of hemoptysis post procedure, this is improving. Review of Systems 14 point ROS is negative except as stated in HPI Past Medical History Past Medical History: Cancer, Deep Vein Thrombosis (DVT), Hyperlipidemia, Hypertension, Osteoarthritis (OA), Pulmonary Embolus (PE), Renal Disease Additional Past Medical History / Comment(s): hx. pulmonary embolus 2018, chronic renal failure, she is of a Protestant kash, cough & congestion for few months, course of steroids in Aug. History of Any Multi-Drug Resistant Organisms: None Reported Past Surgical History: Breast Surgery Additional Past Surgical History / Comment(s): "L breast lumpectomy-benign", cataracts removed-lens implants Past Anesthesia/Blood Transfusion Reactions: No Reported Reaction Smoking Status: Former smoker - Past Family History Father History Unknown: Yes Family Medical History: Hyperlipidemia, Hypertension Mother Family Medical History: Hypertension Medications and Allergies Home Medications Medication Instructions Recorded Confirmed Type Acetaminophen Tab [Tylenol] 1,000 mg PO Q4H PRN 11/09/18 09/21/20 History Albuterol Inhaler [Ventolin Hfa 1 puff INHALATION RT-QID 30 Days 09/27/20 Rx Inhaler] #1 puff Famotidine [Pepcid] 20 mg PO DAILY 30 Days #30 tab 09/27/20 Rx Levofloxacin [Levaquin] 750 mg PO Q48H #5 tab 09/27/20 Rx guaiFENesin SYRUP 100MG/5ML 200 mg PO Q6HR #120 ml 09/27/20 Rx [Robitussin] predniSONE 10 mg PO DIRECTED #30 tab 09/27/20 Rx Allergies Allergy/AdvReac Type Severity Reaction Status Date / Time No Known Allergies Allergy Verified 09/19/20 10:38 Physical Exam Vitals: Vital Signs Temp Pulse Pulse Resp BP Pulse Ox Pulse Ox 09/27/20 08:00 98.1 F 65 16 135/69 91 L 09/27/20 01:37 98.7 F 63 16 126/63 90 L 09/26/20 19:24 100 09/26/20 19:15 97 09/26/20 19:09 18 09/26/20 19:05 97.6 F 73 18 131/63 93 L 09/26/20 15:56 105 H 09/26/20 15:46 87 L 09/26/20 14:46 98.0 F 105 H 18 167/80 87 L 09/26/20 11:15 86 09/26/20 11:04 95 91 L Intake and Output 09/26/20 09/27/20 09/27/20 22:59 06:59 14:59 Other: Voiding Method Bedside Commode # Voids 2 1 - Constitutional General appearance: cooperative, no acute distress, thin - EENT Eyes: anicteric sclerae, EOMI ENT: hearing grossly normal, normal oropharynx - Neck Neck: no lymphadenopathy - Respiratory Respiratory: bilateral: CTA - Cardiovascular Rhythm: regular Heart sounds: normal: S1, S2 Abnormal Heart Sounds: no systolic murmur, no diastolic murmur, no rub, no S3 Gallop, no S4 Gallop, no click, no other leg Peripheral Edema: bilateral: None - Gastrointestinal General gastrointestinal: no absent bowel sounds, no decreased bowel sounds, no distended, no hepatomegaly, no hyperactive bowel sounds, normal bowel sounds, no organomegaly, no rigid, no scaphoid, soft, no splenomegaly, no tenderness, no umbilical hernia, no ventral hernia - Neurologic Neurologic: CNII-XII intact - Musculoskeletal Musculoskeletal: generalized weakness, strength equal bilaterally - Psychiatric Psychiatric: A&O x's 3, appropriate affect, intact judgment & insight Results CBC & Chem 7: 09/25/20 12:31 09/26/20 09:16 Chest x-ray: report reviewed CT scan - chest: report reviewed Assessment and Plan (1) Primary papillary adenocarcinoma of lung Narrative/Plan: New diagnosis. Discussed with pt. Recommended MRI brain and US of thyroid while inpatient with PET scan outpt to complete staging. Pt wants to go home 1st and talk with family. Entered office contact info into DC paperwork. Told pt to please call if she wants to come to office with family to discuss case or if she would like to proceed with recommended imaging. Asked Nursing to reinforce this and makah the info on pt paperwork Status: Acute Priority: High Code(s): C34.90 - MALIGNANT NEOPLASM OF UNSP PART OF UNSP BRONCHUS OR LUNG SNOMED Code(s): 047301228 Plan: Doctor attests: I performed a history and physical examination of this patient, developed impression and plan of care, discussed with dictator. I agree with dictators note, documented as a scribe.
--- NOTE | 2020-10-02 07:17 | CDI ---
Documentation Clarification Form Date: 10/02/20 From: Yael Crum Phone: Please call Elsie Chakraborty at from 8-5pm for questions Admit Date: 09/21/2020 02:22:00 PM Patient Name: Radha Joshua Visit Number: [id number] Discharge Date: 09/27/2020 01:33:00 PM ATTENTION: The Clinical Documentation Specialists (CDI) and [facility] Coding Staff appreciate your assistance in clarifying documentation. Please respond to the clarification below the line at the bottom and electronically sign. The CDI & [facility] Coding staff will review the response and follow-up if needed. Please note: Queries are made part of the Legal Health Record. If you have any questions, please contact the author of this message via ITS. Dr. Sanders E Sheet, CKD is documented in the H&P, Dr Somers's consult, numerous progress notes and discharge summary. CR is stable at 1.4 with chronic kidney disease per Dr Cavazos. History/Risk Factors: LLL cancer, acute hypoxic respiratory failure, HTN, PNA, hypotension HLD, OA Lab dates: 09/21-09/26 Current BUN: 19, 22, 21, 29 Current CR: 1.33, 1.55, 1.16, 1.58 Current GFR: 41, 34, 37, 34 Treatment: Monitoring of labs In order to capture the severity of condition, please clarify the stage of the CKD, if known: CKD Stage 1 (GFR > 90) CKD Stage 2 (GFR 60-89) CKD Stage 3a (GFR 45-59) CKD Stage 3b (GFR 30-44) CKD Stage 4 (GFR 15-29) CKD Stage 5 (GFR <15) ESRD Other, please specify Unable to determine CKD Stage 3 MTDD
== END 2020-09-27 13:33 | disposition home health service (06) | DRG 907 ==
LOC: ORWHC2ENDO 09:51 → 2SICU 14:22 → ORWHC2ENDO 14:22 → 2SICU 14:33 → 5NMEDONC 09-23 15:46
PROVIDERS: ADMIT Internal Medicine Critical Care Medicine; ATTEND Internal Medicine
PROC: 0BDJ8ZX Extraction of Left Lower Lung Lobe, Via Natural or Artificial Opening Endoscopic, Diagnostic (ICD-10-PCS; 2020-09-21 12:00)
PROC: 0B9B8ZZ Drainage of Left Lower Lobe Bronchus, Via Natural or Artificial Opening Endoscopic (ICD-10-PCS; 2020-09-21 12:00)
PROC: 5A1935Z Respiratory Ventilation, Less than 24 Consecutive Hours (ICD-10-PCS; 2020-09-21 12:00)
PROC: 8E0WXBG Computer Assisted Procedure of Trunk Region, With Computerized Tomography (ICD-10-PCS; 2020-09-21 12:00)
PROC: 3E033XZ Introduction of Vasopressor into Peripheral Vein, Percutaneous Approach (ICD-10-PCS; 2020-09-21 12:00)
PROC: 0BCJ8ZZ Extirpation of Matter from Left Lower Lung Lobe, Via Natural or Artificial Opening Endoscopic (ICD-10-PCS; principal; 2020-09-22 08:50)
PROC: 0B9J8ZX Drainage of Left Lower Lung Lobe, Via Natural or Artificial Opening Endoscopic, Diagnostic (ICD-10-PCS; principal; 2020-09-22 08:50)
DX: J95.61 Intraoperative hemorrhage and hematoma of a respiratory system organ or structure complicating a respiratory system procedure (principal); J96.01 Acute respiratory failure with hypoxia; J18.9 Pneumonia, unspecified organism; C34.32 Malignant neoplasm of lower lobe, left bronchus or lung; I31.3 Pericardial effusion (noninflammatory); J98.11 Atelectasis; I95.89 Other hypotension; N18.30 Chronic kidney disease, stage 3 unspecified; I12.9 Hypertensive chronic kidney disease with stage 1 through stage 4 chronic kidney disease, or unspecified chronic kidney disease; E78.5 Hyperlipidemia, unspecified; M19.90 Unspecified osteoarthritis, unspecified site; Z79.01 Long term (current) use of anticoagulants; Z79.899 Other long term (current) drug therapy; Z87.891 Personal history of nicotine dependence; Z86.718 Personal history of other venous thrombosis and embolism; Z86.711 Personal history of pulmonary embolism; Z98.42 Cataract extraction status, left eye; Z98.41 Cataract extraction status, right eye; Z96.1 Presence of intraocular lens; Z87.2 Personal history of diseases of the skin and subcutaneous tissue; Z98.890 Other specified postprocedural states; Y84.8 Other medical procedures as the cause of abnormal reaction of the patient, or of later complication, without mention of misadventure at the time of the procedure; Y92.234 Operating room of hospital as the place of occurrence of the external cause; Z83.49 Family history of other endocrine, nutritional and metabolic diseases; Z82.49 Family history of ischemic heart disease and other diseases of the circulatory system
CPT/HCPCS: 31624; 31625; 31627; 36600; 71045; 71250; 80048; 80053; 82805; 85025; 85027; 85610; 85730; 87070; 87102; 87116; 87205; 87206; 87252; 87496; 87498; 87502; 87529; 87634; 87798; 88108; 88305; 89050; 94002; 94003; 94640; 94760

== ENCOUNTER → 2020-10-20 | Outpatient (CLI) | payer MEDICARE, BC ==
--- NOTE | 2020-10-20 10:45 | PE ---
EXAMINATION TYPE: PET CT fusion skull to thigh DATE OF EXAM: 10/20/2020 COMPARISON: Chest CT September 04, 2020 HISTORY: Lung cancer diagnosed September 2020 on bronchoscopy TECHNIQUE: Following the intravenous administration of 9.77 mCi of F-18 FDG, whole body images are p erformed from the skull base to the midthigh. Images are reviewed on the computer in the coronal, ax ial, and sagittal planes. Reconstructed rotating images are created on independent workstation and r eviewed on the computer. A localization and attenuation correction CT is performed in conjunction w ith the PET scan. SCAN: Initial Scan FINDINGS: SKULL BASE AND NECK: No areas of suspicious hypermetabolic uptake. CHEST, MEDIASTINUM, AND HILAR REGION: Background mild underlying emphysematous change. Corresponding to recent CT there are multifocal areas of groundglass opacity redemonstrated bilaterally which appea r to have increased in size and number from September 04. Additional Areas of masslike consolidation a re seen. Reference largest in the periphery of the left lower lobe with abnormal hypermetabolic uptak e and lack of peripheral air bronchograms measuring roughly 11 x 4 cm axial image 106, max SUV is 11. 98 on axial image 114. Additional focus of mass or masslike consolidation with hypermetabolic uptake anteromedial right mid lung measures roughly 2.9 x 0.8 cm axial image 89 is more prominent from recen t CT. Max SUV is 5.7 on axial image 93. There is third 2.7 x 2.0 cm right basilar nodule or nodular c onsolidation with hypermetabolic uptake axial image 116, max SUV is 4.61. There is spiculated 1.5 cm nodule or nodular consolidation image 76 left upper lobe max SUV 4.52. No abnormal hypermetabolic thoracic lymph nodes. ABDOMEN AND PELVIS: Abnormal hypermetabolic focus involving the pancreas uncinate process axial image 146 measuring between 1 to [address] correlate on noncontrast images, max SUV is 5.9. Normal excretion is present. No adrenal masses. OSSEOUS STRUCTURES: No suspicious hypermetabolic uptake. OTHER CT: Moderate sized pericardial effusion redemonstrated. Enlarged pulmonary arteries consistent with underlying pulmonary artery hypertension. Moderate to severe three-vessel coronary artery calcif ication. S-shaped scoliosis with multilevel spurring in the spine. There are simple appearing thin-walled cyst right kidney. Moderate calcified plaque of the aorta extends into branch vessels. Scattered colonic diverticula. Scattered bilateral pelvic phleboliths. IMPRESSION: Suspicion for primary pancreatic lesion with worrisome for bilateral multifocal acute inf iltrates in the lungs and areas of multifocal metastatic neoplasm. Correlation with bronchoscopy resu lts from September 21 advised.
== END | disposition home or self-care (01) ==
LOC: RADPETMAIN 08:24
PROVIDERS: ATTEND Internal Medicine Hematology & Oncology
DX: C34.32 Malignant neoplasm of lower lobe, left bronchus or lung (principal)
CPT/HCPCS: 78815; A9552